=== PATIENT | female | born 1945 | race Caucasian/White ===

== ENCOUNTER 2017-01-22 21:13 | Emergency (ER) | payer MEDICARE, BC ==
[2015-09-01 12:26] VITALS: BMI 32.6
[~2017-01-22 21:13] MED LIST: ACETAZOLAMIDE250 MG PO; ALLEGRA180 MG PO; ANCEF/KEFZOL INJ1 GM IV; ASPIRIN EC81 M1 PO; BAYER CHEWABLE81 MG PO; BYSTOLIC10 MG PO; CALCIUM PO; CALCIUM/VIT D; COCONUT OIL; COLACE100 MG PO; COZAAR50 MG PO; DULCOLAX10 MG/SUPP RC; EFFIENT10 MG PO; ELIQUIS2.5 MG PO; FENOFIBRATE134 MG PO; HYDROCODON-ACE1 EAC7 PO; HYDROCODONE-APA1 TAB PO; LEVOTHROID112 MCG PO; MAG-OXIDE400 MG PO; MIRALAX17 GM PO; MOBIC7.5 MG PO; MS CONTIN15 MG PO; MULTI-DAY VITAM1 TAB PO; OYSCO 500+D TAB1 TAB; PHENERGAN25 M1 PO; PLAVIX75 MG PO; POTASSIUM99 M1; PRILOSEC20 MG PO; SENOKOT-S TABLE1 TAB PO; ZOLOFT50 MG PO; [UNRECOGNIZED DRUG - OTHER] PO
[2017-01-22 21:41] LABS: BASOPHILS 0.5 % (0-2); EOSINOPHILS 1.3 % (0-7); HEMATOCRIT 30.6 % (36.0-48.0); HEMOGLOBIN 9.9 g/dL (12-16); IMMATURE GRANULOCYTES 0.3 % (0-5); MCHC 32.4 g/dL (31.0-37.0); MCV 92.7 fL (80.0-100.0); MEAN PLATELET VOLUME 9.8 fL (7.4-10.4); MONOCYTES 5.9 % (2-11); PLATELET COUNT 359 10x3/uL (130-400); WBC 8.7 10x3/uL (4.8-10.8)
[2017-01-22 21:48] LABS: APTT 25.2 SECONDS (22.8-39.4); INR 1.01 (0.85-1.17); PROTIME 13.1 SECONDS (11.6-15.0)
[2017-01-22 21:53] LABS: ALBUMIN 3.8 g/dL (3.4-5.0); ANION GAP 10.3 mmol/L (8-16); BILIRUBIN - TOTAL 0.19 mg/dL (0.2-1.3); CALCIUM 8.9 mg/dL (8.5-10.1); CARBON DIOXIDE 26.6 mmol/L (21.0-32.0); CREATININE - SERUM 1.3 mg/dL (0.6-1.3); POTASSIUM - SERUM 3.9 mmol/L (3.5-5.1); PROTEIN - SERUM 6.9 g/dL (6.4-8.2)
== END 2017-01-23 00:35 | disposition home or self-care (01) ==
LOC: D.ER 21:13
PROVIDERS: Family Medicine
DX: K92.2 Gastrointestinal hemorrhage, unspecified (principal); I10 Essential (primary) hypertension

== ENCOUNTER → 2017-08-23 16:25 | Outpatient (CLI) | payer MEDICARE, BC ==
[2015-09-01 12:26] VITALS: BMI 32.6
[~2017-08-23 16:25] MED LIST changes: +BRILINTA90 MG PO; +NORVASC5 MG PO
[2017-08-23 16:33] LABS: BASOPHILS 0.8 % (0-2); HEMATOCRIT 38.7 % (36.0-48.0); HEMOGLOBIN 12.6 g/dL (12-16); IMMATURE GRANULOCYTES 0.2 % (0-5); LYMPHOCYTES 35.7 % (15-50); MCH 29.7 pg (26.0-34.0); MCHC 32.6 g/dL (31.0-37.0); MCV 91.3 fL (80.0-100.0); MEAN PLATELET VOLUME 10.2 fL (7.4-10.4); MONOCYTES 9.9 % (2-11); NEUTROPHILS 50.4 % (40-80); PLATELET COUNT 288 10x3/uL (130-400); RBC 4.24 10x6/uL (4.00-5.40); WBC 5.9 10x3/uL (4.8-10.8)
[2017-08-23 17:06] LABS: % SATURATION 20 % (15-55); IRON 69 ug/dl (35-150); TOTAL IRON BIND CAPACITY 344 ug/dl (260-445); UNSAT IRON BIND CAPACITY 275 ug/dl (150-375)
[2017-08-25 08:19] LABS: FOLATE (FOLIC ACID) - SERUM 17.8 ng/mL (>3.0)
== END | disposition home or self-care (01) ==
LOC: D.LABREF 16:25
PROVIDERS: Nurse Practitioner
DX: E61.1 Iron deficiency (principal)

== ENCOUNTER 2017-09-14 11:45 | Outpatient (CLI) | payer MEDICARE, BC ==
[~2017-09-14] VITALS: Ht 157.5 cm; Wt 86.4 kg
--- NOTE | ~2017-09-14 | HEMODYNAMI ---
PATIENT:TOMEKA VALLE MEDICAL RECORD: [id number] : 41 LOCATION:[facility] ADMISSION DATE: 09/14/17 Generatedon:09/14/201715:37 Patient name: TOMEKA VALLE Patient #: [id number] SSN: DO B: 1945 Date of study: 09/14/2017 Page: Of Hemodynamic Procedure Report Patient Data Patient Demographics Procedure consent was obtained First Name: TOMEKA Gender: Female Last Name: LEONARD : 1945 Middle Initial: ALLAN Age: 72 year(s) Patient #: [id number] Race: Additional ID: [id number] Contact details Address: [address] [place] [address] State: [place] City: [facility] Zip code: [address] Past Medical History History of disease Date Diagnosis Comments CAD Allergies Allergen Reaction Date Comments Reported Penicillins 08/20/2015 Other allergy 08/20/2015 PRENISONE Other allergy 09/14/2017 wasp/bee stings, prednisone Penicillins 09/14/2017 Admission Admission Data Admission Date: 09/14/2017 Admission Time: 11:45 Height (in.): 62 BSA: 1.87 (m2) Height (cm.): 157.48 BMI: 34.68 (kg/m2) Weight (lbs.): 189.6 Weight (kg.): 86 Lab Results Lab Result Date: 09/14/2017 Lab Result Time: 0:00 Biochemistry Name Units Result Min Max BUN mg/dl 19 --(----)*- 7 18 Creatinine mg/dl 0.9 --(-*--)-- 0.6 1.3 CBC Name Units Result Min Max Hemoglobin g/dl 12.8 -*(----)-- 13.5 17.5 Platelets 10^3/l 261 --(-*--)-- 130 400 Procedure Procedure Types Cath Procedure Diagnostic Procedure LHC LH w/Coronaries PCI Procedure Coronary Stent Coronary Stent Initial Procedure Description Procedure Date Procedure Date: 09/14/2017 Procedure Start Time: 15:02 Procedure End Time: 15:36 Procedure Staff Name Function Rosas Solis MD Performing Physician Meliton Greene RN Nurse Sole Tolentino RT Scrub Santiago Jimenez RT Monitor Procedure Data Cath Procedure Fluoroscopy Diagnostic fluoroscopy Total fluoroscopy Time: 4.6 time: 4.6 min min Diagnostic fluoroscopy Total fluoroscopy dose: 570 dose: 570 mGy mGy Contrast Material Contrast Material Type Amount (ml) Isovue 300 86 Entry Location Entry Primary Successful Side Size Upsize Upsize Entry Closure Succes sful Closure Location (Fr) 1 (Fr) 2 (Fr) Remarks Device Remarks Femoral Right 5 Fr 6 Fr Exoseal artery Short Estimated blood loss: 10 ml Diagnostic catheters Device Type Used For End Catheter Placement MULTIPACK JL 4.0 5Fr Procedure catheter MULTIPACK 3DRC 5Fr Procedure catheter MULTIPACK Pigtail 5 Fr Procedure catheter Procedure Complications No complications Procedure Medications Medication Administration Route Dosage Oxygen NC 2 l/min Lidocaine 2% added to field 20 Heparin Flush Bag added to field 2 bags (1000units/500ml NS) 0.9% NaCl I.V. 100 ml/hr Versed I.V. 2 mg Fentanyl I.V. 50 mcg Versed I.V. 1 mg Fentanyl I.V. 50 mcg Versed I.V. 1 mg Heparin Bolus I.V. 8500 units Versed I.V. 1 mg Fentanyl I.V. 50 mcg Zofran I.V. 4 mg Brilinta P.O. 180 mg Hemodynamics Rest BSA: 1.87 (m2) O2 Consumption: Estimated: 171.52 (ml/min) O2 Consumption indexed : Estimated:91.72 (ml/min/m) Heart Rate: 71 (bpm) Pressure Samples Time Site Value (mmHg) Purpose Heart Use Rate(bpm) 15:04 AO 133/53(83) Snapshot 68 15:10 LV 138/-7,13 Snapshot 73 Gradients Valve Time Site Site Mean SEP/DFP Peak To Heart Use 1 2 (mmHg) (sec/min) Peak Rate (mmHg) (bpm) Aortic 15:10 LV AO 69 Snapshots Pre Cath Intra NCS Post Cath Vital Signs Time Heart Resp SPO2 etCO2 NIBP (mmHg) Rhythm Pain Sedation Rate (ipm) (%) (mmHg) Status Level (bpm) 14:54:38 65 18 99 0 183/80(148) NSR 0 (11) 10(A) , No pain 14:59:21 67 16 99 20.1 133/69(103) NSR 0 (11) 10(A) , No pain 15:04:02 69 51 100 29.1 132/69(108) NSR 0 (11) 9(A) , No pain 15:08:42 73 15 99 22.4 141/69(100) NSR 0 (11) 9(A) , No pain 15:13:25 76 13 99 23.8 135/56(98) NSR 0 (11) 9(A) , No pain 15:18:01 81 15 100 33.6 127/68(98) NSR 0 (11) 9(A) , No pain 15:22:38 82 25 100 34.3 124/63(102) NSR 0 (11) 10(A) , No pain 15:27:19 73 14 100 10.4 123/61(88) NSR 0 (11) 10(A) , No pain 15:31:59 72 13 100 38.8 140/57(95) NSR 0 (11) 10(A) , No pain 15:36:42 68 11 100 31.3 134/71(85) NSR 0 (11) 10(A) , No pain Medications Time Medication Route Dose Verified Delivered Reason Notes Effectiveness by by 14:56:55 Oxygen NC 2 Rosas Buffie used for l/min Will Greene RN procedure 14:57:25 Lidocaine 2% added 20ml Rosas Rosas for local to vial Will Solis MD anesthetic field 14:57:30 Heparin Flush added 2 Rosas Rosas used for Bag to bags Will Solis MD procedure (1000units/500ml field NS) 14:57:38 0.9% NaCl I.V. 100 Rosas Buffie Per physician ml/hr Will Greene RN 14:58:31 Versed I.V. 2 mg Rosas Buffie for sedation Will Greene RN 14:58:36 Fentanyl I.V. 50 Rosas Buffie for sedation mcg Will Greene RN 15:02:58 Versed I.V. 1 mg Rosas Buffie for sedation Will Greene RN 15:03:02 Fentanyl I.V. 50 Rosas Buffie for sedation mcg Will Greene RN 15:05:47 Versed I.V. 1 mg Rosas Buffie for sedation Will Greene RN 15:15:34 Heparin Bolus I.V. 8,500 Rosas Buffie for verifi ed units Will Greene RN anticoagulation with dr solis 15:20:09 Versed I.V. 1 mg Rosas Buffie for sedation Will Greene RN 15:20:14 Fentanyl I.V. 50 Rosas Buffie for sedation mcg Will Greene RN 15:25:55 Zofran I.V. 4 mg Rosas Buffie Per physician Will Greene RN 15:26:34 Brilinta P.O. 180 Rosas Buffie for mg Will Greene RN antiplatelet therapy Procedure Log Time Note 14:21:03 Time tracking: Regular hours (M-F 7:00 - 5:00) 14:21:07 Plan of Care:Hemodynamics will remain stable., Cardiac rhythm will remain stable., Comfort level will be maintained., Respiratory function will remain adequate., Patient/ family verbilizes understanding of procedure., Procedure tolerated without complication., Recovers from procedure without complications.. 14:33:45 Ellie Counts RT(R) sent for patient. Start room use. 14:43:23 Patient received from Pre/Post Procedure Room to CCL 1 Alert and oriented. Tansferred to table in Supine position. 14:43:24 Warm blankets applied, and nicole hugger turned on for patient comfort. 14:43:24 Correct patient and procedure confirmed by team. 14:43:25 Signed procedure consent form obtained from patient. 14:43:26 ECG and BP/O2 sat monitors applied to patient. 14:43:27 Pre-procedure instructions explained to patient. 14:43:27 Pre-op teaching completed and patient verbalized understanding. 14:43:35 Family in waiting room. 14:43:36 Patient NPO since Midnight. 14:53:27 Patient allergic to Other allergywasp/bee stings, prednisone 14:53:34 Patient allergic to Penicillins 14:53:40 Vital chart was started 14:53:43 Rhythm: sinus rhythm 14:53:44 Full Disclosure recording started 14:54:46 H&P Date Dictated: 08/23/2017 Within 30 days and on chart., H&P Addendum completed by physician on day of procedure. (MUST COMPLETE FOR ALL OUTPATIENTS). 14:54:50 Is patient on blood thinner?No 14:54:59 Patient diabetic? No. 14:55:02 Previous problem with sedation/anesthesia? No ? 14:55:03 Snore? No 14:55:04 Sleep apnea? No 14:55:05 Deviated septum? No 14:55:06 Opens mouth fully? Yes 14:55:06 Sticks out tongue? Yes 14:55:08 Airway obstruction? No ? 14:55:12 Dentures? Yes IN 14:55:16 Pre procedure: right dorsailis pedis pulse 2+ Normal; easily identifiable; not easily obliterated 14:55:21 Patient pain scale 0/10 ?. 14:55:26 IV patent on arrival in left hand with 0.9% NaCl at [facility]. 14:55:28 Lab results completed and on chart. 14:55:32 Right groin area was prepped with chlora-prep and draped in sterile fashion 14:55:33 Alarms reviewed by R. N. 14:55:34 Sharps counted by scrub and verified by R.N. 14:55:38 Use device set Femoral Dx 14:55:38 ACIST Syringe (73647) opened to sterile field. 14:55:39 Bag Decanter (2002) opened to sterile field. 14:55:39 Medline Cath Pack ([id number]) opened to sterile field. 14:55:40 DIAGNOSTIC WIRE .035 260cm J wire (476142) opened to sterile field. 14:55:41 ACIST Hand Control (45520) opened to sterile field. 14:55:41 ACIST Manifold (95357) opened to sterile field. 14:55:42 DIAGNOSTIC Multipack 5Fr catheter set ([id number]) opened to sterile field. 14:55:43 Tegaderm 4 x 4 (1626W) opened to sterile field. 14:55:43 PERCUTANEOUS ENTRY 19GA needle opened to sterile field. 14:55:44 SHEATH Prelude 5Fr 0.035 (PFH-9K-09-035) opened to sterile field. 14:55:53 Final Timeout: patient, procedure, and site verified with staff and physician. All members of the team are in agreement. 14:55:56 Right groin site verified by team. 14:55:58 Physical assessment completed. ASA score P 2 - A patient with mild systemic disease as per Rosas Solis MD. 14:56:01 Sedation plan: IV Moderate Sedation Medication:Versed, Fentanyl 14:56:55 Oxygen 2 l/min NC was administered by Meliton Greene RN; used for procedure; 14:57:25 Lidocaine 2% 20ml vial added to field was administered by Rosas Solis MD; for local anesthetic; 14:57:30 Heparin Flush Bag (1000units/500ml NS) 2 bags added to field was administered by Rosas Solis MD; used for procedure; 14:57:38 0.9% NaCl 100 ml/hr I.V. was administered by Meliton Greene RN; Per physician; 14:58:31 Versed 2 mg I.V. was administered by Meliton Greene RN; for sedation; 14:58:36 Fentanyl 50 mcg I.V. was administered by Meliton Greene RN; for sedation; 15:00:40 Patient Weight : 189.6 lbs 15:00:43 Patient Height : 62 inches 15:02:19 Lab Result : Hemoglobin 12.8 g/dl 15:02:19 Lab Result : Platelets 261 10^3/l 15:02:19 Lab Result : BUN 19 mg/dl 15:02:19 Lab Result : Creatinine 0.9 mg/dl 15:02:24 Procedure started. 15:02:30 Local anesthetic to right femoral artery with Lidocaine 2% by Rosas Solis MD.INITIAL ACCESS ONLY 15:02:58 Versed 1 mg I.V. was administered by Meliton Greene RN; for sedation; 15:03:02 Fentanyl 50 mcg I.V. was administered by Meliton Greene RN; for sedation; 15:03:06 Zero performed for pressure channel P1 15:03:47 A 5 Fr sheath was inserted into the Right Femoral artery 15:03:55 Baseline sample Acquired. 15:04:04 A MULTIPACK JL 4.0 5Fr catheter was advanced over the wire and used for Procedure. 15:05:36 LCA angiography performed. 15:05:47 Versed 1 mg I.V. was administered by Meliton Greene RN; for sedation; 15:06:48 Catheter exchanged over wire. 15:06:53 A MULTIPACK 3DRC 5Fr catheter was advanced over the wire and used for Procedure. 15:08:36 RCA angiography performed. 15:08:40 Catheter exchanged over wire. 15:08:53 A MULTIPACK Pigtail 5 Fr catheter was advanced over the wire and used for Procedure. 15:10:27 LV angiography performed. 15:10:28 LV gram done using DOMINGUEZ 15:10:36 EF : 60 % 15:10:47 LV hemodynamics recorded. 15:10:50 Injector settings: Ml/sec: 10, Volume: 20, 15:10:53 Catheter exchanged over wire. 15:11:07 Use device set SOLIS PCI 15:11:22 SHEATH Prelude 6Fr 0.035 (GNA-8I-57-035) opened to sterile field. 15:12:45 GUIDE 6FR 3DRC catheter ([id number]) opened to sterile field. 15:12:51 BMW 300cm [place] 2 J wire ([id number]) opened to sterile field. 15:12:52 INFLATOR Merit BasixCompak (IE7163) opened to sterile field. 15:12:54 TUBING High Pressure Extension Tubing (Will) ([id number]) opened to sterile field. 15:14:19 Sheath upsized to a 6 Fr Short. 15:14:28 6 Fr 3DRC guide catheter was inserted over the wire 15:15:32 BMW wire advanced. 15:15:34 Heparin Bolus 8,500 units I.V. was administered by Meliton Greene RN; for anticoagulation; verified with dr solis 15:16:26 Wire advanced across lesion. 15:19:35 Place stent Inflation Number: 1 A INTEGRITY OTW 3.0 X 18 stent ([id number]) was prepped and advanced across the Prox RCA. The stent was deployed at 14 YOUNG for 0:10 (min:sec). 15:20:09 Versed 1 mg I.V. was administered by Meliton Greene RN; for sedation; 15:20:14 Fentanyl 50 mcg I.V. was administered by Meliton Greene RN; for sedation; 15:24:08 Stent catheter was removed intact over wire. 15:24:09 Wire removed. 15:24:09 Guide catheter removed. 15:24:14 EXOSEAL 6Fr (EX600) opened to sterile field. 15:24:27 Sheath removed intact; hemostasis achieved with Exoseal to the Right Femoral artery. 15:24:29 Procedure ended.(Physican Out) 15:25:55 Zofran 4 mg I.V. was administered by Meliton Greene RN; Per physician; 15:26:34 Brilinta 180 mg P.O. was administered by Meliton Greene RN; for antiplatelet therapy; 15:30:42 Fluoroscopy time 04.60 minutes. 15:30:46 Fluoroscopy dose: 570 mGy 15:30:46 Flurop Dose total: 570 15:30:51 Contrast amount:Isovue 300 86ml. 15:34:29 Sharps counted by scrub and verified by R.N. 15:34:48 Post right femoral artery:stable, oozing 15:34:53 Femstop placed over the right femoral artery at 170 mmHg. Hemostasis achieved. 15:34:57 Post-procedure physical assessment completed. ASA score P 2 - A patient with mild systemic disease as per Rosas Solis MD. 15:35:00 Post procedure rhythm: unchanged. 15:35:02 Estimated blood loss: 10 ml 15:35:04 Post procedure instruction explained to patient.Patient verbalizes understanding. 15:35:05 Patient needs reinforcement of post procedure teaching. 15:35:12 Procedure type changed to Cath procedure, Diagnostic procedure, LHC, LHC w/Coronaries, PCI procedure, Coronary Stent, Coronary Stent Initial 15:35:14 Procedure and supply charges have been captured, reviewed, submitted and are correct. 15:35:16 Procedure Complication : No complications 15:35:32 FEMSTOP Gold ([id number]) opened to sterile field. 15:36:08 Vital chart was stopped 15:36:08 See physician's report for complete and final results. 15:36:10 Report given to Pre/Post Procedure Room. 15:36:13 Patient transfered to Pre/Post Procedure Room with Stretcher. 15:36:15 Procedure ended. 15:36:15 Full Disclosure recording stopped 15:36:18 End room use (Document Last) Intervention Summary Intervention Notes Time ActionType Lesion and Equipment Action# Pressure Duration Attributes Used 15:19:35 Place stent Prox RCA INTEGRITY 1 14 00:10 OTW 3.0 X 18 stent ([id number]) Device Usage Item Name Manufacture Quantity Catalog Number Hospital Part Current Minimal Lot# / Charge Number Stock Stock Serial# Code ACIST Syringe Acist 1 01560 648876 947945 780292 20 (61464) [employer] Bag Decanter Microtek 1 2001S 528828 58763 384736 5 (2001S) Medical Inc. Medline Cath Cardinal 1 [id number] 328005 28178 504687 5 Pack Health ([id number]) DIAGNOSTIC WIRE [facility] 1 897744 851883 462410 927311 30 .035 260cm J wire (176954) ACIST Hand Acist 1 70851 170607 425705 296353 5 Control (96867) [employer] Inc ACIST Manifold Acist 1 14686 600160 395398 823217 5 (48213) [employer] Inc DIAGNOSTIC Cardinal 1 IJ2168 529343 06292 909535 30 Multipack 5Fr Health catheter set ([id number]) Tegaderm 4 x 4 3M 1 1626W 543769 841990 497205 5 (1626W) PERCUTANEOUS Cook Medical 1 U15675 597330 496079 5 ENTRY 19GA needle SHEATH Prelude Merit 1 XBE-3T-22-035 000832 375971 242399 5 5Fr 0.035 Medical (QTV-9K-61-035) MULTIPACK JL Cardinal 1 [id number] 5 4.0 5Fr Health catheter MULTIPACK 3DRC Cardinal 1 658181 5 5Fr catheter Health MULTIPACK Cardinal 1 118918 5 Pigtail 5 Fr Health catheter SHEATH Prelude Merit 1 VVY-6J-02-35 828165 1651426 758621 5 6Fr 0.035 Medical (NDW-5N-95-035) GUIDE 6FR 3DRC Medtronic 1 [id number] 882716 426392 187316 1 catheter ([id number]) BMW 300cm Tariq 1 [id number] 171721 117209 365021 5 [place] 2 J Vascular wire ([id number]) INFLATOR Merit Merit 1 WZ7003 275220 400157 448499 15 BasPwinty Medical ([id number]) TUBING High Merit 1 [id number] 743296 47911 490827 10 Pressure Medical Extension Tubing ([employer]) (YZ1066E) INTEGRITY OTW Medtronic 1 [id number] 561859 381566 0 [id number] 3.0 X 18 stent ([id number]) EXOSEAL 6Fr Cardinal 1 EX600 632198 911441 391172 10 (EX600) Health FEMSTOP Gold [facility] Evaristo 1 J67990 698848 675491 599804 5 ([id number]) Signature Audit [place] Stage Time Signature Unsigned Intra-Procedure 09/14/2017 Santiago Jimenez 3:37:38 PM RT(R) Signatures Monitor : Santiago Jimenez RT Signature : Date : Time : [address] [address]
[~2017-09-14 11:45] MED LIST changes: -BRILINTA90 MG PO; -NORVASC5 MG PO
[2017-09-14] MEDS ORDERED: NORVASC5 MG PO (12:27)
[2017-09-14 12:40] VITALS: BP 195/81; Ht 157.5 cm; Wt 86.4 kg
[2017-09-14 12:51] LABS: BASOPHILS 0.8 % (0-2); EOSINOPHILS 3.2 % (0-7); HEMATOCRIT 38.3 % (36.0-48.0); HEMOGLOBIN 12.8 g/dL (12-16); IMMATURE GRANULOCYTES 0.5 % (0-5); LYMPHOCYTES 34.7 % (15-50); MCH 29.7 pg (26.0-34.0); MCHC 33.4 g/dL (31.0-37.0); MCV 88.9 fL (80.0-100.0); MEAN PLATELET VOLUME 9.4 fL (7.4-10.4); MONOCYTES 8.4 % (2-11); NEUTROPHILS 52.4 % (40-80); PLATELET COUNT 261 10x3/uL (130-400); RBC 4.31 10x6/uL (4.00-5.40); RDW 12.9 % (11.5-14.5); WBC 6.5 10x3/uL (4.8-10.8)
[2017-09-14 13:56] LABS: ANION GAP 14.3 mmol/L (8-16); CALCIUM 9.7 mg/dL (8.5-10.1); CARBON DIOXIDE 25.8 mmol/L (21.0-32.0); CREATININE - SERUM 0.9 mg/dL (0.6-1.3); POTASSIUM - SERUM 4.1 mmol/L (3.5-5.1)
[2017-09-14] MEDS ORDERED: BRILINTA90 MG PO (15:35)
== END 2017-09-14 20:00 | disposition home or self-care (01) ==
LOC: D.CATH 11:45
PROVIDERS: Internal Medicine Cardiovascular Disease
DX: I25.119 Atherosclerotic heart disease of native coronary artery with unspecified angina pectoris (principal); Z95.5 Presence of coronary angioplasty implant and graft; Z01.812 Encounter for preprocedural laboratory examination

== ENCOUNTER → 2018-03-27 17:05 | Outpatient (CLI) | payer MEDICARE, BC ==
[2017-09-14 12:40] VITALS: BMI 34.8
[~2018-03-27 17:05] MED LIST changes: +BRILINTA90 MG PO; +NORVASC5 MG PO
== END | disposition home or self-care (01) ==
LOC: D.LABREF 17:05
DX: M25.561 Pain in right knee (principal)

== ENCOUNTER → 2018-03-28 13:16 | Outpatient (CLI) | payer MEDICARE, BC ==
[2017-09-14 12:40] VITALS: BMI 34.8
[2018-03-28 13:42] LABS: BASOPHILS 0.9 % (0-2); EOSINOPHILS 2.1 % (0-7); HEMATOCRIT 40.6 % (36.0-48.0); HEMOGLOBIN 12.9 g/dL (12-16); IMMATURE GRANULOCYTES 0.1 % (0-5); LYMPHOCYTES 29.4 % (15-50); MCH 30.4 pg (26.0-34.0); MCHC 31.8 g/dL (31.0-37.0); MCV 95.8 fL (80.0-100.0); MEAN PLATELET VOLUME 10.6 fL (7.4-10.4); MONOCYTES 8.7 % (2-11); NEUTROPHILS 58.8 % (40-80); RBC 4.24 10x6/uL (4.00-5.40); RDW 13.7 % (11.5-14.5); WBC 8.2 10x3/uL (4.8-10.8)
[2018-03-28 13:52] LABS: PLATELET COUNT 339 10x3/uL (130-400)
[2018-03-28 14:57] LABS: ERYTHROCYTE SEDIMENTATION RATE 13 mm/hr (0-30)
== END | disposition home or self-care (01) ==
LOC: D.LABREF 13:16
PROVIDERS: Orthopaedic Surgery
DX: M25.561 Pain in right knee (principal)

== ENCOUNTER → 2018-03-31 10:05 | Outpatient (CLI) | payer MEDICARE, BC ==
[2017-09-14 12:40] VITALS: BMI 34.8
== END | disposition home or self-care (01) ==
LOC: D.NM 10:05
DX: M25.561 Pain in right knee (principal)

== ENCOUNTER → 2018-04-05 10:44 | Outpatient (CLI) | payer MEDICARE, BC ==
[2017-09-14 12:40] VITALS: BMI 34.8
[2018-04-05 13:30] LABS: EOS BF 3 %; MACROPHAGES BF 18 %; NEUT - BF 46 %
[2018-04-07 13:18] LABS: FUNGUS STAIN Final report (())
== END | disposition home or self-care (01) ==
LOC: D.LABREF 10:44
PROVIDERS: Orthopaedic Surgery
DX: M25.561 Pain in right knee (principal)

== ENCOUNTER → 2018-04-13 10:18 | Outpatient (CLI) | payer MEDICARE, BC ==
[2017-09-14 12:40] VITALS: BMI 34.8
== END | disposition home or self-care (01) ==
LOC: D.HCCARDIO 10:18
DX: I25.10 Atherosclerotic heart disease of native coronary artery without angina pectoris (principal)

== ENCOUNTER 2018-05-03 11:14 | Outpatient (CLI) | payer MEDICARE, BC ==
[~2018-05-03] VITALS: Ht 157.5 cm; Wt 81.8 kg
--- NOTE | ~2018-05-03 | HEMODYNAMI ---
PATIENT:TOMEKA VALLE MEDICAL RECORD: [id number] : 41 LOCATION:[facility] ADMISSION DATE: 05/03/18 Generatedon:05/03/201815:06 Patient name: TOMEKA VALLE Patient #: [id number] SSN: DO B: 1945 Date of study: 05/03/2018 Page: Of Hemodynamic Procedure Report Patient Data Patient Demographics Procedure consent was obtained First Name: TOMEKA Gender: Female Last Name: LEONARD : 1945 Middle Initial: ALLAN Age: 73 year(s) Patient #: [id number] Race: Additional ID: [id number] Contact details [address]: [address] [place] [address] State: [place] City: [place] Zip code: [address] Past Medical History History of disease Date Diagnosis Comments CAD Allergies Allergen Reaction Date Comments Reported Penicillins 08/20/2015 Other allergy 08/20/2015 PRENISONE Other allergy 09/14/2017 wasp/bee stings, prednisone Penicillins 09/14/2017 Penicillins 05/03/2018 Other allergy 05/03/2018 prednisone Admission Admission Data Admission Date: 05/03/2018 Admission Time: 11:14 Height (in.): 62 BSA: 1.88 (m2) Height (cm.): 157.48 BMI: 35.12 (kg/m2) Weight (lbs.): 192 Weight (kg.): 87.09 Procedure Procedure Types Cath Procedure Diagnostic Procedure LHC LHC w/Coronaries Procedure Description Procedure Date Procedure Date: 05/03/2018 Procedure Start Time: 14:53 Procedure End Time: 15:06 Procedure Staff Name Function Rosas Solis MD Performing Physician Ellie Bauman RT Monitor Florentino Kate RN Nurse Norah Fox RT Scrub Procedure Data Cath Procedure Fluoroscopy Diagnostic fluoroscopy Total fluoroscopy Time: 1.5 time: 1.5 min min Diagnostic fluoroscopy Total fluoroscopy dose: 445 dose: 445 mGy mGy Contrast Material Contrast Material Type Amount (ml) Isovue 300 52 Entry Location Entry Primary Successful Side Size Upsize Upsize Entry Closure Succes sful Closure Location (Fr) 1 (Fr) 2 (Fr) Remarks Device Remarks Femoral Right 5 Fr Exoseal artery Estimated blood loss: 5 ml Diagnostic catheters Device Type Used For End Catheter Placement MULTIPACK JL 4.0 5Fr Left Coronary catheter Angiography MULTIPACK 3DRC 5Fr Right Coronary catheter Angiography MULTIPACK Pigtail 5 Fr LV Angiography catheter Procedure Complications No complications Procedure Medications Medication Administration Route Dosage 0.9% NaCl I.V. 100 ml/hr Oxygen etCO2 Nasal cannula 2 l/min Heparin Flush Bag added to field 2 bags (1000units/500ml NS) Lidocaine 2% added to field 20 Benadryl I.V. 50 mg Versed I.V. 1 mg Fentanyl I.V. 50 mcg Versed I.V. 1 mg Fentanyl I.V. 50 mcg Hemodynamics Rest BSA: 1.88 (m2) O2 Consumption: Estimated: 170.95 (ml/min) O2 Consumption indexed : Estimated:90.93 (ml/min/m) Heart Rate: 70 (bpm) Pressure Samples Time Site Value (mmHg) Purpose Heart Use Rate(bpm) 14:59 LV 137/-5,13 EDP 76 Gradients Valve Time Site Site Mean SEP/DFP Peak To Heart Use 1 2 (mmHg) (sec/min) Peak Rate (mmHg) (bpm) Aortic 15:01 LV AO 81 Snapshots Pre Cath Intra NCS Post Cath Vital Signs Time Heart Resp SPO2 etCO2 NIBP (mmHg) Rhythm Pain Sedation Rate (ipm) (%) (mmHg) Status Level (bpm) 14:44:16 62 13 94 131/56(100) NSR 0 (11) 10(A) , No pain 14:48:34 65 19 97 39.9 129/59(96) NSR 0 (11) 10(A) , No pain 14:52:50 67 13 96 24.8 124/61(93) NSR 0 (11) 10(A) , No pain 14:57:06 77 13 97 42.9 120/59(100) NSR 0 (11) 9(A) , No pain 15:01:18 81 14 98 39.2 131/64(100) NSR 0 (11) 10(A) , No pain 15:05:34 71 18 97 26.3 134/59(97) NSR 0 (11) 10(A) , No pain Medications Time Medication Route Dose Verified Delivered Reason Notes Effe ctiveness by by 14:45:25 0.9% NaCl I.V. 100 Florentino Florentino Per ml/hr Humble Kate physician RN RN 14:45:35 Oxygen etCO2 2 Florentino Florentino Per Nasal l/min Humble Kate physician cannula RN RN 14:45:45 Heparin Flush added 2 Florentino Florentino used for Bag to bags Lorigan Humble procedure (1000units/500ml field RN RN NS) 14:45:54 Lidocaine 2% added 20ml Florentino Florentino to to vial Lorigan Lorigan sharp's field RN RN 14:46:04 Benadryl I.V. 50 mg Florentino Florentino Per Humble Kate physician RN RN 14:47:25 Versed I.V. 1 mg Florentino Florentino for Lorigan Lorigan sedation RN RN 14:47:34 Fentanyl I.V. 50 Florentino Florentino for mcg Lorigan Lorigan sedation RN RN 14:53:56 Versed I.V. 1 mg Florentino Florentino for Lorigan Lorigan sedation RN RN 14:54:03 Fentanyl I.V. 50 Florentino Florentino for mcg Lorigan Lorigan sedation RN white metal caster Log Time Note 14:16:14 Patient Height : 62 inches 14:16:20 Patient Weight : 192 lbs 14:24:52 Florentino Kate RN sent for patient. Start room use. 14:29:08 Time tracking: Regular hours (M-F 7:00 - 5:00) 14:29:13 Plan of Care:Hemodynamics will remain stable., Cardiac rhythm will remain stable., Comfort level will be maintained., Respiratory function will remain adequate., Patient/ family verbilizes understanding of procedure., Procedure tolerated without complication., Recovers from procedure without complications.. 14:32:39 Patient received from Pre/Post Procedure Room to CCL 2 Alert and oriented. Tansferred to table in Supine position. 14:32:40 Warm blankets applied, and nicole hugger turned on for patient comfort. 14:32:40 Correct patient and procedure confirmed by team. 14:32:42 Signed procedure consent form obtained from patient. 14:32:43 ECG and BP/O2 sat monitors applied to patient. 14:32:44 Full Disclosure recording started 14:43:01 Vital chart was started 14:43:08 Rhythm: sinus rhythm 14:44:04 H&P Date Dictated: 04/17/2019 Within 30 days and on chart., H&P Addendum completed by physician on day of procedure. (MUST COMPLETE FOR ALL OUTPATIENTS). 14:44:05 Pre-procedure instructions explained to patient. 14:44:05 Pre-op teaching completed and patient verbalized understanding. 14:44:06 Family in patients room. 14:44:09 Patient NPO since Midnight. 14:44:42 Patient allergic to Penicillins 14:44:57 Patient allergic to Other allergyprednisone 14:44:59 Is the patient allergic to Iodine/contrast media? No. 14:45:00 Is patient on blood thinner?No 14:45:03 Patient diabetic? Yes. 14:45:04 If diabetic: On Metformin? Yes 14:45:11 If on Metformin: Last Dose? 04/29/2018 14:45:25 0.9% NaCl 100 ml/hr I.V. was administered by Florentino Kate RN; Per physician; 14:45:27 Previous problem with sedation/anesthesia? No ? 14:45:27 Snore? Yes 14:45:28 Sleep apnea? No 14:45:29 Deviated septum? No 14:45:31 Opens mouth fully? Yes 14:45:31 Sticks out tongue? Yes 14:45:35 Oxygen 2 l/min etCO2 Nasal cannula was administered by Florentino Kate RN; Per physician; 14:45:45 Heparin Flush Bag (1000units/500ml NS) 2 bags added to field was administered by Florentino Kate RN; used for procedure; 14:45:45 Airway obstruction? No ? 14:45:54 Lidocaine 2% 20ml vial added to field was administered by Florentino Kate RN; to sharp's; 14:46:02 Dentures? Yes IN 14:46:04 Benadryl 50 mg I.V. was administered by Florentino Kate RN; Per physician; 14:46:06 Pre procedure: right dorsailis pedis pulse 2+ Normal; easily identifiable; not easily obliterated 14:46:09 Patient pain scale 0/10 ?. 14:46:25 IV patent on arrival in left forearm with 0.9% NaCl at KVO. 14:46:27 Lab results completed and on chart. 14:46:33 Right groin area was prepped with chlora-prep and draped in sterile fashion 14:46:34 Alarms reviewed by R. N. 14:46:34 Sharps counted by scrub and verified by R.N. 14:46:36 Final Timeout: patient, procedure, and site verified with staff and physician. All members of the team are in agreement. 14:46:38 Right groin site verified by team. 14:46:41 Physical assessment completed. ASA score P 2 - A patient with mild systemic disease as per Rosas Solis MD. 14:46:44 Sedation plan: IV Moderate Sedation Medication:Versed, Fentanyl 14:46:51 Use device set Femoral Dx 14:46:52 ACIST Syringe (26025) opened to sterile field. 14:46:52 Bag Decanter (2002S) opened to sterile field. 14:46:53 Medline Cath Pack ([id number]) opened to sterile field. 14:46:54 DIAGNOSTIC WIRE .035 260cm J wire (069714) opened to sterile field. 14:46:54 ACIST Hand Control (22287) opened to sterile field. 14:46:55 ACIST Manifold (34531) opened to sterile field. 14:46:55 DIAGNOSTIC Multipack 5Fr catheter set ([id number]) opened to sterile field. 14:46:56 Tegaderm 4 x 4 (1626W) opened to sterile field. 14:46:57 SHEATH 5FR [place] (IZL340) opened to sterile field. 14:47:25 Versed 1 mg I.V. was administered by Florentino Kate RN; for sedation; 14:47:31 Baseline sample Acquired. 14:47:34 Fentanyl 50 mcg I.V. was administered by Florentino Kate RN; for sedation; 14:53:02 Procedure started. 14:53:05 Local anesthetic to right femoral artery with Lidocaine 2% by Rosas Solis MD.INITIAL ACCESS ONLY 14:53:08 Zero performed for pressure channel P1 14:53:39 A 5 Fr sheath was inserted into the Right Femoral artery 14:53:56 Versed 1 mg I.V. was administered by Florentino Kate RN; for sedation; 14:54:03 Fentanyl 50 mcg I.V. was administered by Florentino Kate RN; for sedation; 14:55:13 A MULTIPACK JL 4.0 5Fr catheter was advanced over the wire and used for Left Coronary Angiography. 14:56:20 Catheter removed. 14:56:46 A MULTIPACK 3DRC 5Fr catheter was advanced over the wire and used for Right Coronary Angiography. 14:58:01 Catheter removed. 14:58:26 A MULTIPACK Pigtail 5 Fr catheter was advanced over the wire and used for LV Angiography. 15:00:15 LV gram done using DOMINGUEZ 15:00:16 LV hemodynamics recorded. 15:00:18 Injector settings: Ml/sec: 10, Volume: 20, 15:00:23 EF : 60 % 15:01:20 Catheter removed. 15:01:45 EXOSEAL 5Fr (EX500) opened to sterile field. 15:01:51 Sheath removed intact; hemostasis achieved with Exoseal to the Right Femoral artery. 15:01:53 Procedure ended.(Physican Out) 15:02:33 Fluoroscopy time 01.50 minutes. 15:02:54 Flurop Dose total: 445 15:02:54 Fluoroscopy dose: 445 mGy 15:03:22 Contrast amount:Isovue 300 52ml. 15:03:24 Sharps counted by scrub and verified by R.N. 15:03:26 Insertion/operative site no bleeding no hematoma. 15:03:29 Post-op/insertion site Right Femoral artery dressed using a 4 x 4 and Tegaderm. 15:03:33 Post right femoral artery:stable, clean and dry 15:03:35 Post Procedure Pulses reassessed and unchanged 15:03:39 Post-procedure physical assessment completed. ASA score P 2 - A patient with mild systemic disease as per Rosas Solis MD. 15:03:43 Post procedure rhythm: unchanged. 15:03:48 Estimated blood loss: 5 ml 15:03:49 Post procedure instruction explained to patient.Patient verbalizes understanding. 15:03:50 Patient needs reinforcement of post procedure teaching. 15:04:13 Procedure Complication : No complications 15:04:15 See physician's report for complete and final results. 15:04:31 Procedure and supply charges have been captured, reviewed, submitted and are correct. 15:05:49 Vital chart was stopped 15:05:51 Report given to Pre/Post Procedure Room. 15:05:54 Patient transfered to Pre/Post Procedure Room with Stretcher. 15:06:03 Procedure ended. 15:06:03 Full Disclosure recording stopped 15:06:07 End room use (Document Last) Device Usage Item Name Manufacture Quantity Catalog Hospital Part Current Minimal L ot# / Number Charge Number Stock Stock Serial# Code ACIST Acist 1 37954 507515 319258 582346 20 Syringe Medical (59685) Systems Inc Bag Microtek 1 2001S 402233 71602 663923 5 Decanter Medical Inc. () Medline Medline 1 [id number] 962400 97097 038307 5 Cath Pack ([id number]) DIAGNOSTIC St Evaristo 1 512742 460367 290943 740367 30 WIRE .035 260cm J wire (750907) ACIST Hand Acist 1 49801 265888 774311 763321 5 Control Medical (75102) Systems Inc ACIST Acist 1 59142 524791 750999 119585 5 Manifold Medical (25447) Systems Inc DIAGNOSTIC Cardinal 1 DE5073 087998 19288 477458 30 Multipack Health 5Fr catheter set (GM5499) Tegaderm 4 3M 1 1626W 595168 005669 594451 5 x 4 (1626W) SHEATH 5FR Terumo 1 BBC901 425239 722080 647840 5 [place] (OQA342) MULTIPACK Cardinal 1 374307 5 JL 4.0 5Fr Health catheter MULTIPACK Cardinal 1 184064 5 3DRC 5Fr Health catheter MULTIPACK Cardinal 1 902891 5 Pigtail 5 Health Fr catheter EXOSEAL 5Fr Cardinal 1 EX500 868414 355498 652730 10 (EX500) Health Signature Audit Reeder Stage Time Signature Unsigned Intra-Procedure 05/03/2018 Ellie 3:06:21 PM Counts RT(R) Signatures Monitor : Ellie Signature : Counts RT Date : Time : [place] [id number] [place] [address]
[2018-05-03] MEDS ORDERED: GLUCOPHAGE500 MG PO (11:34)
[2018-05-03] MEDS ORDERED: COZAAR100 MG PO (11:34)
[2018-05-03] MEDS ORDERED: HCTZ25 MG PO (11:35)
[2018-05-03] MEDS ORDERED: ZOLOFT50 MG PO (11:35)
[2018-05-03] MEDS ORDERED: K-TAB10 MEQ PO (11:36)
[2018-05-03] MEDS ORDERED: LEVOTHYROXINE125 MCG PO (11:36)
[2018-05-03] MEDS ORDERED: ZYRTEC10 MG PO (11:37)
[2018-05-03 11:43] VITALS: BP 130/61; Ht 157.5 cm; Wt 81.8 kg
[2018-05-03 12:08] LABS: ANION GAP 14.4 mmol/L (8-16); CARBON DIOXIDE 26.6 mmol/L (21.0-32.0); CREATININE - SERUM 0.8 mg/dL (0.6-1.3)
[2018-05-03 12:10] LABS: BASOPHILS 0.6 % (0-2); EOSINOPHILS 2.3 % (0-7); HEMATOCRIT 35.3 % (36.0-48.0); HEMOGLOBIN 11.4 g/dL (12-16); IMMATURE GRANULOCYTES 0.3 % (0-5); LYMPHOCYTES 28.9 % (15-50); MCHC 32.3 g/dL (31.0-37.0); MCV 92.9 fL (80.0-100.0); MONOCYTES 8.6 % (2-11); NEUTROPHILS 59.3 % (40-80); PLATELET COUNT 276 10x3/uL (130-400); RDW 13.2 % (11.5-14.5)
--- NOTE | 2018-05-03 15:35 | NUR ---
PT RESTING COMFORTABLY. GIVEN WATER TO DRINK. DENIES NAUSEA. RIGHT GROIN SOFT TO TOUCH. NO S/S OF HEMATOMA NOTED. RIGHT PPP.
--- NOTE | 2018-05-03 16:05 | NUR ---
PT RESTING COMFORTABLY AT THIS TIME. RIGHT GROIN DRESSING C/D/I. NO S/S OF HEMATOMA NOTED. VSS AT THIS TIME.
--- NOTE | 2018-05-03 16:30 | NUR ---
PT'S HEAD OF BED INC TO 30 DEGREES. RIGHT GROIN DRESSING C/D/I. NO S/S OF HEMATOMA NOTED. RIGHT PEDAL PULSE PALPABLE. SET UP WITH SANDWICH TRAY. VSS AT THIS TIME.
--- NOTE | 2018-05-03 17:00 | NUR ---
RIGHT FA PIV D/C'D WITH CATH TIP INTACT. PT TOLERATED WELL. RIGHT GROIN DRESSING C/D/I. NO S/S OF HEMATOMA NOTED. PT DRESSED SELF. AMBULATED TO RESTROOM AND VOIDED WITHOUT DIFFICULTY.
--- NOTE | 2018-05-03 17:25 | NUR ---
DISCUSSED DISCHARGE INSTRUCTIONS WITH PT AND PT'S FAMILY. THEY VOICED UNDERSTANDING.
--- NOTE | 2018-05-03 17:30 | NUR ---
PT TAKEN OUT BY WHEELCHAIR TO VEHICLE. NO S/S OF DISTRESS NOTED. RIGHT GROIN DRESSING C/D/I. NO S/S OF HEMATOMA. PT REPORTS SHE HAS ALL BELONGINGS AND PAPER[place]ORK IN HAND.
== END 2018-05-03 17:30 | disposition home or self-care (01) ==
LOC: D.CATH 11:14
PROVIDERS: Internal Medicine Cardiovascular Disease
DX: I25.10 Atherosclerotic heart disease of native coronary artery without angina pectoris (principal); R94.30 Abnormal result of cardiovascular function study, unspecified

== ENCOUNTER → 2018-05-25 16:53 | Outpatient (CLI) | payer MEDICARE, BC ==
[2018-05-03 11:43] VITALS: BMI 33.0
[~2018-05-25 16:53] MED LIST changes: +ACETAMINOPHEN500 M1 PO; +COZAAR100 MG PO; +GLUCOPHAGE500 MG PO; +HCTZ25 MG PO; +K-TAB10 MEQ PO; +LEVOTHYROXINE125 MCG PO; +ULTRAM50 MG PO; +ZYRTEC10 MG PO
== END | disposition home or self-care (01) ==
LOC: D.LABREF 16:53
DX: M17.11 Unilateral primary osteoarthritis, right knee (principal); Z11.8 Encounter for screening for other infectious and parasitic diseases

== ENCOUNTER 2018-05-29 08:55 | Inpatient (IN) | payer MEDICARE, BC ==
[~2018-05-29] VITALS: Ht 157.5 cm; Wt 81.8 kg
[~2018-05-29 08:55] MED LIST changes: -ACETAMINOPHEN500 M1 PO; -ULTRAM50 MG PO
[2018-05-30] MEDS ORDERED: ULTRAM50 MG PO (14:32)
[2018-05-30] MEDS ORDERED: ACETAMINOPHEN500 M1 PO (14:32)
[2018-05-31 12:56] LABS: ANION GAP 14.6 mmol/L (8-16); APTT 31.4 SECONDS (22.8-39.4); CALCIUM 9.2 mg/dL (8.5-10.1); CARBON DIOXIDE 28.3 mmol/L (21.0-32.0); INR 0.98 (0.85-1.17); POTASSIUM - SERUM 3.9 mmol/L (3.5-5.1); PROTIME 12.5 SECONDS (11.6-15.0)
[2018-05-31 13:08] LABS: BASOPHILS 0.7 % (0-2); EOSINOPHILS 2.9 % (0-7); HEMATOCRIT 37.3 % (36.0-48.0); HEMOGLOBIN 11.9 g/dL (12-16); IMMATURE GRANULOCYTES 0.1 % (0-5); LYMPHOCYTES 33.2 % (15-50); MCH 29.3 pg (26.0-34.0); MCHC 31.9 g/dL (31.0-37.0); MCV 91.9 fL (80.0-100.0); MONOCYTES 8.7 % (2-11); NEUTROPHILS 54.4 % (40-80); PLATELET COUNT 287 10x3/uL (130-400); RBC 4.06 10x6/uL (4.00-5.40); RDW 13.2 % (11.5-14.5); WBC 6.8 10x3/uL (4.8-10.8)
[2018-05-31 14:00] LABS: APPEARANCE SL CLDY (CLEAR); BACTERIA MANY /hpf (NONE SEEN); BILIRUBIN NEGATIVE (NEGATIVE); COLOR YELLOW (YELLOW); EPITHELIAL CELLS OCC /hpf (0-5); GLUCOSE NEGATIVE (NEGATIVE); KETONE NEGATIVE (NEGATIVE); MUCUS <1+ /lpf (NONE SEEN); NITRITE POSITIVE (NEGATIVE); PROTEIN NEGATIVE (NEGATIVE); UROBILINOGEN NORMAL (NORMAL)
[2018-06-06] VITALS (14 sets, daily range): BP systolic 116–141; BP diastolic 46–64; Ht 157.5 cm; Wt 81.8 kg
--- NOTE | 2018-06-06 15:58 | OP ---
PATIENT NAME: TOMEKA PACHECO MEDICAL RECORD: [id number] :41 LOCATION:D.MS Quinn2208 ADMISSION DATE:06/06/18 SURGEON: LANE PHILLIPS DO DATE OF OPERATION: 06/06/2018 PROCEDURE PERFORMED: Right revision total knee arthroplasty. PREOPERATIVE DIAGNOSIS: Loosening of right total knee done about 3-4 years ago. POSTOPERATIVE DIAGNOSIS: Loosening of right total knee done about 3-4 years ago. INDICATIONS: Ms. Pacheco is a 73-year-old female who had her right knee done, I think, 3 or 4 years ago, maybe 2014. She has had pain in it for the last few years and instability with clicking a lot on it. She is tired of dealing with this pain. She has tried several rounds of outpatient physical therapy. Labs were drawn of ESR, CRP, and white count, which were all normal. An aspirate was done of her knee and did not grow any bacteria. It did have 2600 white cells; however, 46% of them were neutrophils. Again, the culture did not grow any bacteria. She did have a bone scan which showed either loosening versus infection. Due to the negative aspirate with loosening and instability, she said when she gets up and walk, she felt like it had to settle; and once it is settled, then it would not be as painful, which are typical signs for loosening. I informed her of risks and benefits of the procedure including infection. She is at higher risk due to it being a revision and a longer surgery and she is diabetic; bleeding, damage to nerve and vessels, need for further surgery, loosening again, and fracture. She was okay with those risks as she is tired of dealing with the pain. Blood clots also and even . She signed the consent. SURGEON: Lane Phillips DO DESCRIPTION OF PROCEDURE: The patient received a block by anesthesia in the preoperative area. I was assisted by Jac Rowland, Advanced Nurse Practitioner. He assisted me with holding retractors and closing. Once the patient was sedated and LMA was placed, the right lower extremity was prepped and draped in sterile fashion. Time-out was performed and everyone was in agreement with correct side, site, patient, and procedure. The patient received 80 mg of gentamicin and 2 grams of Ancef preoperatively. The incision was then begun, marked out over the old incision. Ioban was covering the leg. Incision began with a #10 blade scalpel down to the capsule and a fresh #10 blade was used to do capsulotomy. The scar tissue was removed from the gutters and the poly was removed from the old implant. Once the poly was removed from the femur, a flexible osteotome was used to work around the femur. The lateral side was quite loose and it popped off very easily. The tibia was then worked on and the medial side of the femur was loose as well as the medial side of the tibia. These popped off nicely and the cement that was on them both was removed. I then reamed the femur and cut a distal cut to freshen it up. I then reamed the tibia and did a freshened up cut there as well, approximately 2 mm. The tourniquet was inflated to begin the procedure and the leg was exsanguinated with an Esmarch. Tourniquet was inflated to 350 mmHg and was up for 124 minutes. At the 124-minute caryn, it was left down. Once the tibia and femur had been cut, reaming began on the femur first and then trial was put in, but it kept kicking out. All releases were done and again it kept kicking out when we trialed the tibia to float it. We decided to cut the box out then for the OPERATIVE REPORT [id number] TOMEKA PACHECO posterior stabilized implant and this impacted with 5-mm distal augments. This held well and fit very well. The tibia was then floated in and I used a 2.5 augment and a 14 tray and this seemed to do okay. The tibia was then prepped and drilled. The implants were put together and then cement was mixed. The tourniquet was let down just prior to this at the 124-minute caryn. Once the cement was mixed, I placed on the implants into the tibia and the femur and then impacted into place. Excess cement was removed on the tibia first and then the femur was impacted into place and excess cement was removed on that. The 14 poly was put in between them and the knee was brought into extension. The knee was then thoroughly irrigated. Any coagulation was done at that time. Once the cement had dried, the 14 seemed to fit okay, was a little loose. A 16 poly was put in with the PS stem and this fit very well. The implants that were used as a Vanguard 360/65 right femur with 5-mm distal augments and 5-mm offset, a 13 x 80 split stem. Then, a 67 tibial tray was used with a small cruciate wing and 2.5 offset and an 11 x 80 stem in the tibia. The 16 poly dished with a posterior post. Once this was implanted, she was very stable in flexion and extension and brought into extension and then knee was irrigated. Surgicel beads were placed on the gutters as well as tobramycin and vancomycin powder. The capsule was then closed with #2 Ethibond in [id number] fashion and then the capsule was irrigated. More antibiotic powder was placed on it and 2-0 Vicryl was used in interrupted fashion on the skin. Then, ZipLine was placed on the skin. The patient was dressed with Adaptic, 4 x 4, ABD, Webril, Eric wrap, and TRIP hose stocking up to the knee. She was awakened and taken to recovery in stable condition. BLOOD LOSS: Approximately 150 mL. COMPLICATIONS: None. TRANSINT:[id number] Voice Confirmation ID: [id number] DOCUMENT ID: [id number] LANE PHILLIPS DO at 1558 CC: [id number] DICTATION DATE: 06/06/18 1131 CIGARETTE MAKER: 06/06/18 1316 ADM IN [place] [address] [place] [address]
--- NOTE | 2018-06-06 16:44 | MORECARE ---
CASE MANAGEMENT DISCHARGE SUMMARY PATIENT: TOMEKA VALLE UNIT: [id number] ADM DATE: 06/06/18 AGE: 73 : 43 SEX: F ROOM/BED: D.2208 AUTHOR: LEONEL NOWAK PHYSICIAN: REFERRING PHYSICIAN: CARSON PHILLIPS DO DATE OF SERVICE: 06/06/18 Discharge Plan Patient Name: TOMEKA VALLE Facility: [facility]:[place] : 1945 Planned Disposition: Home Anticipated Discharge Date: Discharge Date: Expected LOS: Initial Reviewer: [email or web address] Initial Review Date: 06/06/2018 Generated: 06/06/18 5:43 pm DCPIA - Discharge Planning Initial Assessment Updated by [email or web address]: Jessica Hayes on 06/06/18 4:43 pm * Is the patient Alert and Oriented? Yes * How many steps to enter\exit or inside your home? * PCP none * Pharm[facility] * Preadmission Environment Home Alone * ADLs Independent * Equipment None * List name and contact numbers for known caregivers / representatives who currently or will assist patient after discharge: none * Verbal permission to speak to the caregivers and representatives has been obtained from the patient. N/A * Community resources currently utilized None * Additional services required to return to the preadmission environment? No * Can the patient safely return to the preadmission environment? Yes * Has this patient been hospitalized within the prior 30 days at any hospital? No Patient Name: TOMEKA VALLE Page 82091 at 1644 All edits/amendments must be made on the electronic document DICTATION DATE: 06/06/181642 HAT BAND ATTACHER: MARICRUZ 06/06/181642 RPT#: [id number] DC DATE: STATUS: ADM IN [facility] [address] [place] [address] END OF REPORT
--- NOTE | 2018-06-06 16:53 | MORECARE ---
CASE MANAGEMENT DISCHARGE SUMMARY PATIENT: TOMEKA VALLE UNIT: [id number] ADM DATE: 06/06/18 AGE: 73 : 43 SEX: F ROOM/BED: D.2208 AUTHOR: LEONEL NOWAK PHYSICIAN: REFERRING PHYSICIAN: CARSON PHILLIPS DO DATE OF SERVICE: 06/06/18 Discharge Plan Patient Name: TOMEKA VALLE Facility: [facility]:[place] : 1945 Planned Disposition: Anticipated Discharge Date: Discharge Date: Expected LOS: 0 Initial Reviewer: [email or web address] Initial Review Date: 06/06/2018 Generated: 06/06/18 5:52 pm Patient Name: TOMEKA VALLE Page 54538 at 1653 All edits/amendments must be made on the electronic document DICTATION DATE: 06/06/181651 METAL [employer]ODUCTS FABRICATOR ASSEMBLER: MARICRUZ 06/06/181651 RPT#: [id number] DC DATE: STATUS: ADM IN [facility] [address] [place] [address] END OF REPORT
[2018-06-06 22:46] LABS: APPEARANCE CLEAR (CLEAR); BILIRUBIN NEGATIVE (NEGATIVE); COLOR YELLOW (YELLOW); GLUCOSE NEGATIVE (NEGATIVE); KETONE NEGATIVE (NEGATIVE); NITRITE NEGATIVE (NEGATIVE); PROTEIN NEGATIVE (NEGATIVE); UROBILINOGEN NORMAL (NORMAL); WHITE CELLS - URINE OCC /hpf (0-5)
[2018-06-06 22:47] LABS: BACTERIA MODERATE /hpf (NONE SEEN); RED CELLS - URINE OCC /hpf (0-5)
[2018-06-07 01:46] VITALS: BP 142/49
[2018-06-07 06:16] VITALS: BP 131/50
[2018-06-07 06:48] LABS: BASOPHILS 0.2 % (0-2); EOSINOPHILS 0.4 % (0-7); HEMATOCRIT 30.3 % (36.0-48.0); HEMOGLOBIN 9.6 g/dL (12-16); IMMATURE GRANULOCYTES 0.1 % (0-5); LYMPHOCYTES 15.1 % (15-50); MCHC 31.7 g/dL (31.0-37.0); MCV 91.5 fL (80.0-100.0); MEAN PLATELET VOLUME 10.2 fL (7.4-10.4); MONOCYTES 10.6 % (2-11); NEUTROPHILS 73.6 % (40-80); PLATELET COUNT 237 10x3/uL (130-400); RBC 3.31 10x6/uL (4.00-5.40); RDW 13.6 % (11.5-14.5); WBC 8.3 10x3/uL (4.8-10.8)
[2018-06-07 06:52] LABS: ALBUMIN 3.1 g/dL (3.4-5.0); ANION GAP 14.5 mmol/L (8-16); BILIRUBIN - TOTAL 0.22 mg/dL (0.2-1.3); CALCIUM 7.9 mg/dL (8.5-10.1); CARBON DIOXIDE 25.4 mmol/L (21.0-32.0); CREATININE - SERUM 0.8 mg/dL (0.6-1.3); POTASSIUM - SERUM 3.9 mmol/L (3.5-5.1); PROTEIN - SERUM 5.7 g/dL (6.4-8.2)
--- NOTE | 2018-06-07 08:28 | NUR ---
PT RESTING IN BED. CO OF PAIN TO L ANKLE. NO S/S OF ACUTE DISTRESS. CL IN PLACE.
[2018-06-07 09:13] VITALS: BP 97/47
[2018-06-07 15:16] VITALS: BP 133/112
--- NOTE | 2018-06-07 19:45 | NUR ---
PT CONTINUES TO KEEP PAIN OF "8" THIS SHIFT. ICE TO R KNEE ROTATED ON AND OFF. NO S/S OF ACUTE DISTRESS. CL IN PLACE.
--- NOTE | 2018-06-07 20:00 | NUR ---
IN BED CPM IN USE TO RIGHT KNEE, C/O PAIN WILL MEDICATE ORDERED DAUGHTER AT BEDSIDE, CALL LIGHT IN REACH
[2018-06-07 22:23] VITALS: BP 149/55
[2018-06-08] VITALS (7 sets, daily range): BP systolic 101–172; BP diastolic 40–76
[2018-06-08 05:02] LABS: BASOPHILS 0.4 % (0-2); EOSINOPHILS 2.3 % (0-7); HEMATOCRIT 29.5 % (36.0-48.0); HEMOGLOBIN 9.4 g/dL (12-16); IMMATURE GRANULOCYTES 0.3 % (0-5); LYMPHOCYTES 21.7 % (15-50); MCH 29.4 pg (26.0-34.0); MCHC 31.9 g/dL (31.0-37.0); MCV 92.2 fL (80.0-100.0); MEAN PLATELET VOLUME 10.5 fL (7.4-10.4); MONOCYTES 9.4 % (2-11); NEUTROPHILS 65.9 % (40-80); PLATELET COUNT 218 10x3/uL (130-400); RDW 13.5 % (11.5-14.5); WBC 7.2 10x3/uL (4.8-10.8)
[2018-06-08 05:35] LABS: ALBUMIN 2.9 g/dL (3.4-5.0); ALKALINE PHOSPHATASE 129 U/L (46-116); BILIRUBIN - TOTAL 0.31 mg/dL (0.2-1.3); CALC OSMOLALITY 278 mosm/kg (275-300); CARBON DIOXIDE 24.6 mmol/L (21.0-32.0); CHLORIDE - SERUM 103 mmol/L (98-107); CREATININE - SERUM 0.7 mg/dL (0.6-1.3); GLUCOSE 111 mg/dL (74-106); POTASSIUM - SERUM 3.9 mmol/L (3.5-5.1); PROTEIN - SERUM 5.4 g/dL (6.4-8.2); SODIUM 139 mmol/L (136-145); UREA NITROGEN 13 mg/dL (7-18); eGFR NON AFRICAN AMERICAN 86 mL/min (90-120)
[2018-06-08 05:43] LABS: ALT (SGPT) 57 U/L (10-68)
--- NOTE | 2018-06-08 08:40 | NUR ---
PT RESTING QUIETLY IN BED. RESP EVEN AND UNLABORED. SALINE LOC TO RIGHT HAND, SITE WITHOUT REDNESS OR EDEMA. REPORTS PAIN 8/10, PAIN MEDICATION TO BE ADMINISTERED PER MD ORDERS. DRESSING C/D/I TO RIGHT KNEE, CPM IN PLACE. DENIES FURTHER NEEDS AT THIS TIME. CL WITHIN REACH. ENCOURAGED TO CALL WITH NEEDS.
--- NOTE | 2018-06-08 10:30 | NUR ---
ASSISTED PT UP TO BSC AND BACK TO BED. PT ELIE WELL. NO ACUTE DISTRESS NOTED AT THIS TIME. ENCOURAGED TO CALL WITH NEEDS.
--- NOTE | 2018-06-08 12:48 | NUR ---
PT RESTING IN BED WITH FAMILY AT BEDSIDE. REPORTS DECREASED PAIN TO 4/10. NO ACUTE DISTRESS NOTED. ICE PACK PLACED TO KNEE. DENIES FURTHER NEEDS. ENCOURAGED TO CALL WITH NEEDS.
--- NOTE | 2018-06-08 14:07 | MORECARE ---
CASE MANAGEMENT DISCHARGE SUMMARY PATIENT: TOMEKA VALLE UNIT: [id number] ADM DATE: 06/06/18 AGE: 73 : 41 SEX: F ROOM/BED: D.2207 AUTHOR: ELIU,DOC PHYSICIAN: REFERRING PHYSICIAN: CARSON PHILLIPS DO DATE OF SERVICE: 06/08/18 Discharge Plan Patient Name: TOMEKA VALLE Facility: [facility]:[place] : 1945 Planned Disposition: Inpatient Rehab Anticipated Discharge Date: Discharge Date: Expected LOS: 0 Initial Reviewer: [email or web address] Initial Review Date: 06/06/2018 Generated: 06/08/18 3:07 pm Comments DCP- Discharge Planning Updated by [id number]: Jessica Hayes on 06/08/18 1:[address] Patient Name: TOMEKA VALLE Admission Status: Urgent Accout number: [id number] Admission Date: 06-06-2018 : 1945 Admission Diagnosis: Attending: CARSON PHILLIPS Current LOS: 2 Anticipated DC Date: Planned Disposition: Inpatient Rehab Primary Insurance: MEDICARE A & B Discharge Planning Comments: CM MET WITH PATIENT TO ASSESS DISCHARGE PLANNING NEEDS. PATIENT LIVES HOME ALONE INDEPENDENTLY, BUT HER SON WILL STAY WITH HER FOR A LITTLE BIT. SHE WOULD LIKE TO GO TO INPATIENT REHAB AT [facility] ([facility]) I SENT REFERRAL. SHE STATED THAT SHE DOES NOT FEEL SAFE AT THIS TIME TO GO HOME BY HERSELF RIGHT NOW. IMM SERVED AND EXPLAINED. PATIENT HAS A WALKER AT HOME. CM WILL CONTINUE TO FOLLOW AND ASSIST WITH DC PLANNING Waste Oil Pumper: Jessica Hayes DCPIA - Discharge Planning Initial Assessment Updated by [email or web address]: Jessica Hayes on 06/08/18 2:05 pm * Is the patient Alert and Oriented? Yes * How many steps to enter\exit or inside your home? * PCP DAYRON RAHMAN * Pharmacy [facility] [address] * Preadmission Environment Home Alone * ADLs Independent * Equipment Walker * List name and contact numbers for known caregivers / representatives who currently or will assist patient after discharge: ANDREA FRANCISCO [phone] * Verbal permission to speak to the caregivers and representatives has been obtained from the patient. N/A * Community resources currently utilized None * Additional services required to return to the preadmission environment? Yes * Can the patient safely return to the preadmission environment? No * Has this patient been hospitalized within the prior 30 days at any hospital? No External Providers External Provider: 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
--- NOTE | 2018-06-08 16:43 | NUR ---
Rehab Note- Acute Inpatient Rehab Prescreen order received. The patient has some post op complications noted and has a UTI. Will follow at this time. Thank you for this referral! Luciana Saab RN Clinical Liaison, [facility] Rehab
--- NOTE | 2018-06-08 18:00 | NUR ---
CPM PLACED TO RIGHT LOWER EXTREMITY. PT ELIE WELL
--- NOTE | 2018-06-08 19:35 | NUR ---
PT SITTING UP IN BED, NO SIGNS OF DISTRESS. ALERT AND ORIENTED. DAUGHTER AT BEDSIDE. PT STATES PAIN 5/10 IN R KNEE, DENIES NEED FOR PAIN MED AT THIS TIME. RIGHT KNEE IN CPM. SCD TO LEFT LEG. ASSISTED PT ON AND OFF BEDPAN. IV RIGHT HAND SL. ICE PACK APPLED TO RIGHT KNEE. NO COMPLAINTS OR NEEDS AT THIS TIME. BED LOWEST POSITION, SRX2, CL IN REACH. WILL CONTINUE TO MONITOR
--- NOTE | 2018-06-08 21:00 | NUR ---
PT TAKEN OFF CPM. PLEXI BOOT PLACED ON RIGHT FOOT. PT STATES PAIN 5/10. DENIES NEED FOR PAIN MED AT THIS TIME. BP 101/50, HELD [facility]. NO NEEDS OR COMPLAINTS. WILL CONTINUE TO MONITOR
--- NOTE | 2018-06-08 22:45 | NUR ---
PT STATES PAIN 11/08. GAVE NORCO ORDERED. WILL CONTINUE TO MONITOR. SCD TO LEFT LEG, PLEXI TO RIGHT FOOT. IN PLACE AND ON. WILL CONTINUE TO MONITOR
[2018-06-09 03:38] VITALS: BP 132/45
--- NOTE | 2018-06-09 05:30 | NUR ---
PLACED ON CPM
[2018-06-09 06:18] LABS: BASOPHILS 0.6 % (0-2); EOSINOPHILS 3.6 % (0-7); HEMATOCRIT 29.3 % (36.0-48.0); HEMOGLOBIN 9.3 g/dL (12-16); IMMATURE GRANULOCYTES 0.2 % (0-5); LYMPHOCYTES 27.4 % (15-50); MCH 29.5 pg (26.0-34.0); MCHC 31.7 g/dL (31.0-37.0); MONOCYTES 9.8 % (2-11); NEUTROPHILS 58.4 % (40-80); PLATELET COUNT 240 10x3/uL (130-400); RBC 3.15 10x6/uL (4.00-5.40); RDW 13.8 % (11.5-14.5)
[2018-06-09 06:21] LABS: WBC 5.3 10x3/uL (4.8-10.8)
[2018-06-09 06:47] LABS: ALBUMIN 2.9 g/dL (3.4-5.0); ANION GAP 11.9 mmol/L (8-16); BILIRUBIN - TOTAL 0.45 mg/dL (0.2-1.3); CALCIUM 8.6 mg/dL (8.5-10.1); CARBON DIOXIDE 29.1 mmol/L (21.0-32.0); CREATININE - SERUM 0.8 mg/dL (0.6-1.3); PROTEIN - SERUM 5.7 g/dL (6.4-8.2)
--- NOTE | 2018-06-09 07:20 | NUR ---
PT SITTING UP IN BED, CPM IN PLACE TO RIGHT LOWER EXTREMITY, ELIE WELL. REPORTS PAIN 5/10 AT THIS TIME AND REPORTS PAIN BEING MANAGED AT THIS TIME. SALINE LOC TO RIGHT HAND, SITE WITHOUT REDNESS OR EDEMA. FAMILY AT BEDSIDE. DENIES FURTHER NEEDS AT THIS TIME. CL WITHIN REACH. ENCOURAGED TO CALL WITH NEEDS. CONTINUE POC
[2018-06-09 08:34] VITALS: BP 125/81; BP 135/74
--- NOTE | 2018-06-09 09:18 | NUR ---
PT RESTING IN BED WATCHING TV. NO ACUTE DISTRESS NOTED. DENIES FURTHER NEEDS AT THIS TIME. CL WITHIN REACH. WILL CONTINUE TO MONITOR.
[2018-06-09 11:40] VITALS: BP 146/43
[2018-06-09] MEDS ORDERED: ELIQUIS2.5 MG PO (11:55)
[2018-06-09] MEDS ORDERED: NORCO-10 PO (11:55)
[2018-06-09] MEDS ORDERED: VIBRAMYCIN 100100 MG PO (11:57)
--- NOTE | 2018-06-09 12:37 | NUR ---
Rehab Note- Visited with the patient. States that she plans to go to [facility] due to her past stay in our inpatient acute rehab she had her there with her everyday and he recently and she just doesn't feel like she can come back to our acute rehab unit at this time d/t the memories of hime. Provided our contact information if needed in the future. Thank you for this referral! Luciana Saab RN CLinical Liaison, [facility] Rehab
--- NOTE | 2018-06-09 15:45 | NUR ---
PT DISCHARGE INFORMATION GIVEN. SALINE LOCK D/C'D FROM RIGHT FOREARM. DRESSING CHANGE TO RIGHT KNEE MEPILEX AG PLACED. ZIP CLOSURE DRESSING INTACT. DIME SIZED AMOUNT OF BLOODY DRAINAGE NOTED. PT ELIE WELL. ASSISTED WITH DRESSING AND TRANSFER TO / WITH TRANSPORTATION FROM [facility]. REPORT CALLED TO EMLIEE TIPTON INFORMATION PROVIDED. DISCHARGE PAPERWORK SENT WITH HAIR SPINNING MACHINE OPERATOR TO REHAB.
--- NOTE | 2018-06-09 16:56 | MORECARE ---
CASE MANAGEMENT DISCHARGE SUMMARY PATIENT: TOMEKA VALLE UNIT: [id number] ADM DATE: 06/06/18 AGE: 73 : 43 SEX: F ROOM/BED: D.2201 AUTHOR: ELIUDOC PHYSICIAN: REFERRING PHYSICIAN: CARSON PHILLIPS DO DATE OF SERVICE: 06/09/18 Discharge Plan Patient Name: TOMEKA VALLE Facility: [facility]:[place] : 1945 Planned Disposition: Inpatient Rehab Anticipated Discharge Date: Discharge Date: 06/09/2018 Expected LOS: 0 Initial Reviewer: [id number] Initial Review Date: 06/06/2018 Generated: 06/09/18 5:56 pm Comments DCP- Discharge Planning Updated by [email or web address]: Jessica Hayes on 06/09/18 3:[address] PATIENT WAS DISCHARGED TO INPATIENT REHAB AT [facility] BY THEIR VAN DCP- Discharge Planning Updated by [email or web address]: Jessica Hayes on 06/08/18 1:[address] Patient Name: TOMEKA VALLE Admission Status: Urgent Accout number: [id number] Admission Date: 06-06-2018 : 1945 Admission Diagnosis: Attending: CARSON PHILLIPS Current LOS: 2 Anticipated DC Date: Planned Disposition: Inpatient Rehab Primary Insurance: MEDICARE A & B Discharge Planning Comments: CM MET WITH PATIENT TO ASSESS DISCHARGE PLANNING NEEDS. PATIENT LIVES HOME ALONE INDEPENDENTLY, BUT HER SON WILL STAY WITH HER FOR A LITTLE BIT. SHE WOULD LIKE TO GO TO INPATIENT REHAB AT [facility] ([facility]) I SENT REFERRAL. SHE STATED THAT SHE DOES NOT FEEL SAFE AT THIS TIME TO GO HOME BY HERSELF RIGHT NOW. IMM SERVED AND EXPLAINED. PATIENT HAS A WALKER AT HOME. CM WILL CONTINUE TO FOLLOW AND ASSIST WITH DC PLANNING Outside Sales Consultant: Jessica Hayes DCPIA - Discharge Planning Initial Assessment Updated by [email or web address]: Jessica Hayes on 06/08/18 2:05 pm * Is the patient Alert and Oriented? Yes * How many steps to enter\exit or inside your home? * PCP DAYRON RAHMAN * Pharmacy [facility] [address] * Preadmission Environment Home Alone * ADLs Independent * Equipment Walker * List name and contact numbers for known caregivers / representatives who currently or will assist patient after discharge: ANDREA FRANCISCO [phone] * Verbal permission to speak to the caregivers and representatives has been obtained from the patient. N/A * Community resources currently utilized None * Additional services required to return to the preadmission environment? Yes * Can the patient safely return to the preadmission environment? No * Has this patient been hospitalized within the prior 30 days at any hospital? 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
== END 2018-06-09 15:50 | DRG 468 ==
LOC: D.SDCHOLD 06-06 05:00 → D.MS 06-06 05:00 → D.SDCHOLD 06-06 07:30 → D.MS 06-06 12:11
PROVIDERS: Family Medicine; ADMIT Orthopaedic Surgery
PROC: 0SRC0J9 Replacement of Right Knee Joint with Synthetic Substitute, Cemented, Open Approach (ICD-10-PCS; 2018-06-06)
PROC: 0SPC0JZ Removal of Synthetic Substitute from Right Knee Joint, Open Approach (ICD-10-PCS; principal; 2018-06-06 07:30)
DX: T84.032A Mechanical loosening of internal right knee prosthetic joint, initial encounter (principal); Y83.9 Surgical procedure, unspecified as the cause of abnormal reaction of the patient, or of later complication, without mention of misadventure at the time of the procedure; E03.9 Hypothyroidism, unspecified; I10 Essential (primary) hypertension; I25.10 Atherosclerotic heart disease of native coronary artery without angina pectoris; Z87.891 Personal history of nicotine dependence

== ENCOUNTER → 2018-08-23 16:11 | Outpatient (CLI) | payer MEDICARE, BC ==
[2018-06-06 17:27] VITALS: BMI 33.0
[~2018-08-23 16:11] MED LIST changes: +ACETAMINOPHEN500 M1 PO; +NORCO-10 PO; +ULTRAM50 MG PO; +VIBRAMYCIN 100100 MG PO
[2018-08-23 17:51] LABS: APPEARANCE CLEAR (CLEAR); COLOR YELLOW (YELLOW)
[2018-08-23 17:52] LABS: BILIRUBIN NEGATIVE (NEGATIVE); GLUCOSE NEGATIVE (NEGATIVE); KETONE NEGATIVE (NEGATIVE); NITRITE NEGATIVE (NEGATIVE); PROTEIN NEGATIVE (NEGATIVE); SPECIFIC GRAVITY 1.015 (1.005-1.020); UROBILINOGEN NORMAL (NORMAL)
== END | disposition home or self-care (01) ==
LOC: D.LABREF 16:11
PROVIDERS: ATTEND Emergency Medicine
DX: R30.9 Painful micturition, unspecified (principal); R39.198 Other difficulties with micturition; R35.0 Frequency of micturition

== ENCOUNTER → 2019-02-28 12:31 | Outpatient (CLI) | payer MEDICARE, BC ==
[2018-06-06 17:27] VITALS: BMI 33.0
[2019-02-28 16:13] LABS: BASOPHILS 0.5 % (0-2); EOSINOPHILS 1.8 % (0-7); HEMATOCRIT 34.5 % (36.0-48.0); IMMATURE GRANULOCYTES 0.5 % (0-5); LYMPHOCYTES 29.9 % (15-50); MCH 29.6 pg (26.0-34.0); MCHC 31.9 g/dL (31.0-37.0); MONOCYTES 5.8 % (2-11); NEUTROPHILS 61.5 % (40-80); RBC 3.71 10x6/uL (4.00-5.40); RDW 13.5 % (11.5-14.5); WBC 8.7 10x3/uL (4.8-10.8)
[2019-02-28 16:21] LABS: PLATELET COUNT 350 10x3/uL (130-400)
[2019-02-28 17:24] LABS: ERYTHROCYTE SEDIMENTATION RATE 35 mm/hr (0-30)
== END | disposition home or self-care (01) ==
LOC: D.LABREF 12:31
PROVIDERS: ATTEND Orthopaedic Surgery
DX: M25.561 Pain in right knee (principal)

== ENCOUNTER → 2019-05-23 10:33 | Outpatient (CLI) | payer MEDICARE, BC ==
[2018-06-06 17:27] VITALS: BMI 33.0
== END | disposition home or self-care (01) ==
LOC: D.HCCECHO 10:33
PROVIDERS: ATTEND Internal Medicine Cardiovascular Disease
DX: I25.10 Atherosclerotic heart disease of native coronary artery without angina pectoris (principal)

== ENCOUNTER 2019-07-10 08:00 | Outpatient (CLI) | payer MEDICARE, BC ==
[2018-06-06 17:27] VITALS: BMI 33.0
== END 2019-07-10 23:59 | disposition home or self-care (01) ==
LOC: D.MAMMO 08:00
PROVIDERS: ATTEND Emergency Medicine
DX: Z12.31 Encounter for screening mammogram for malignant neoplasm of breast (principal)

== ENCOUNTER → 2019-09-04 07:57 | Outpatient (CLI) | payer MEDICARE, BC ==
[2018-06-06 17:27] VITALS: BMI 33.0
== END | disposition home or self-care (01) ==
LOC: D.HCCARDIO 07:57
PROVIDERS: ATTEND Internal Medicine Cardiovascular Disease
DX: I25.10 Atherosclerotic heart disease of native coronary artery without angina pectoris (principal); R07.9 Chest pain, unspecified; I10 Essential (primary) hypertension

== ENCOUNTER 2019-09-18 06:33 | Outpatient (CLI) | payer MEDICARE, BC ==
[~2019-09-18] VITALS: Ht 157.5 cm; Wt 80.1 kg
--- NOTE | ~2019-09-18 | HEMODYNAMI ---
PATIENT:TOMEKA VALLE MEDICAL RECORD: [id number] : 41 LOCATION:[facility] ADMISSION DATE: 09/18/19 Generatedon:09/18/20199:49 Patient name: TOMEKA VALLE Patient #: [id number] SSN: [id number] : 1945 Date of study: 09/18/2019 Page: Of Hemodynamic Procedure Report Patient Data Patient Demographics Procedure consent was obtained First Name: TOMEKA Gender: Female Last Name: LEONARD : 1945 [facility] Initial: ALLAN Age: 74 year(s) Patient #: [id number] Race: SSN: [id number] Additional ID: [id number] Contact details [address]: [address] [place] [address] State: [place] City: [place] Zip code: [address] Past Medical History History of disease Date Diagnosis Comments CAD Allergies Allergen Reaction Date Comments Reported Penicillins 08/20/2015 Other allergy 08/20/2015 PRENISONE Other allergy 09/14/2017 wasp/bee stings, prednisone Penicillins 09/14/2017 Penicillins 05/03/2018 Other allergy 05/03/2018 prednisone Other allergy 09/18/2019 PCN Admission Admission Data Admission Date: 09/18/2019 Admission Time: 6:33 Insurance Payor: Medicaid [facility] #: [id number] Height (in.): 63 BSA: 1.83 (m2) Height (cm.): 160.02 BMI: 31.18 (kg/m2) Weight (lbs.): 176 Weight (kg.): 79.83 Lab Results Lab Result Date: 09/18/2019 Lab Result Time: 0:00 Biochemistry Name Units Result Min Max BUN mg/dl 31 --(----)-* 7 18 Creatinine mg/dl 1.2 --(---*)-- 0.6 1.3 eGFR ml/min 46 *-(----)-- 90 120 NONAFRICAN CBC Name Units Result Min Max Hemoglobin g/dl 10.8 *-(----)-- 13.5 17.5 Procedure Procedure Types Cath Procedure Diagnostic Procedure [facility] w/Coronaries FFR/IVUS FFR Initial Sedation Charges Moderate Sedation up to 15 minutes Procedure Description Procedure Date Procedure Date: 09/18/2019 Procedure Start Time: 9:17 Procedure End Time: 9:45 Procedure Staff Name Function Rosas Solis MD Performing Physician Norah Fox RT Monitor Kavya Salinas RN Nurse Johana Pendleton RT Scrub Indication Coronary risk factors Procedure Data Cath Procedure Fluoroscopy Diagnostic fluoroscopy Total fluoroscopy Time: 4 time: 4 min min Diagnostic fluoroscopy Total fluoroscopy dose: 457 dose: 457 mGy mGy Contrast Material Contrast Material Type Amount (ml) Isovue 300 71 Entry Location Entry Primary Successful Side Size Upsize Upsize Entry Closure Succes sful Closure Location (Fr) 1 (Fr) 2 (Fr) Remarks Device Remarks Femoral Right 5 Fr 6 Fr artery Short Estimated blood loss: 10 ml Diagnostic catheters Device Type Used For End Catheter Placement MULTIPACK JL 4.0 5Fr Procedure catheter MULTIPACK 3DRC 5Fr Procedure catheter MULTIPACK Pigtail 5 Fr Ventriculography catheter Procedure Complications No complications Procedure Medications Medication Administration Route Dosage 0.9% NaCl I.V. 100 ml/hr Oxygen etCO2 Nasal cannula 2 l/min Lidocaine 2% added to field 20 Heparin Flush Bag added to field 2 bags (1000units/500ml NS) Versed I.V. 2 mg Fentanyl I.V. 50 mcg Fentanyl I.V. 50 mcg Heparin Bolus I.V. 2000 units Hemodynamics Rest BSA: 1.83 (m2) O2 Consumption: Estimated: 164.63 (ml/min) O2 Consumption indexed : Estimated:89.96 (ml/min/m) Heart Rate: 68 (bpm) Pressure Samples Time Site Value (mmHg) Purpose Heart Use Rate(bpm) 9:28 LV 140/5,21 Snapshot 68 Gradients Valve Time Site Site Mean SEP/DFP Peak To Heart Use 1 2 (mmHg) (sec/min) Peak Rate (mmHg) (bpm) Aortic 9:29 LV AO 69 Snapshots Pre Cath Intra NCS Post Cath Vital Signs Time Heart Resp SPO2 etCO2 NIBP Rhythm Pain Sedation Rate (ipm) (%) (mmHg) (mmHg) Status Level (bpm) 9:18:57 57 11 97 33.6 122/54(95) SB 0 (11) 10(A) , No pain 9:23:13 60 10 100 29.1 118/60(96) NSR 0 (11) 10(A) , No pain 9:27:28 69 11 100 35.8 121/59(91) NSR 0 (11) 10(A) , No pain 9:31:43 66 11 100 26.8 134/56(98) NSR 0 (11) 9(A) , No pain 9:35:57 69 12 100 34.3 125/65(92) NSR 0 (11) 9(A) , No pain 9:40:13 65 12 100 35.1 131/67(86) NSR 0 (11) 9(A) , No pain 9:44:33 63 12 100 36.6 135/62(90) NSR 0 (11) 10(A) , No pain Medications Time Medication Route Dose Verified Delivered Reason Notes Effectiveness by by 9:12:47 0.9% NaCl I.V. 100 Rosas Kavya used for ml/hr Will Salinas jaw skinner 9:12:53 Oxygen etCO2 2 Rosas Kavya used for Nasal l/min Will Salinas procedure cannula RN 9:12:58 Lidocaine 2% added 20ml Rosas Rosas for local to vial Will Solis MD anesthetic field 9:13:04 Heparin Flush added 2 Rosas Rosas used for Bag to bags Will Solis MD procedure (1000units/500ml field NS) 9:20:23 Versed I.V. 2 mg Rosas Kavya for sedation Fully awake @ Will Salinas 9:24:32 RN 9:20:28 Fentanyl I.V. 50 Rosas Kavya for sedation Fully awake @ mcg Will Salinas 9:24:34 RN 9:24:21 Fentanyl I.V. 50 Rosas Kavya for sedation Mostly mcg Will Salinas sleeping @ RN 9:30:30 9:35:35 Heparin Bolus I.V. 2000 Rosas Kavya for verifi ed units Will Salinas anticoagulation with Dr. KAMLA Solis Procedure Log Time Note 8:46:38 Patient Height : 63 inches 8:46:46 Patient Weight : 176 lbs 8:47:56 Insurance Payor : Medicaid 8:50:35 Lab Result : Hemoglobin 10.8 g/dl 8:50:35 Lab Result : eGFR NONAFRICAN 46 ml/min 8:50:35 Lab Result : BUN 31 mg/dl 8:50:35 Lab Result : Creatinine 1.2 mg/dl 8:51:17 Indication : Coronary risk factors 8:51:32 Procedure Status Elective Heart Cath (OP). 8:51:35 Kavya Salinas RN sent for patient. Start room use. 8:51:37 Time tracking: Regular hours (M-F 7:00 - 5:00) 8:51:43 Plan of Care:Hemodynamics will remain stable., Cardiac rhythm will remain stable., Comfort level will be maintained., Respiratory function will remain adequate., Patient/ family verbilizes understanding of procedure., Procedure tolerated without complication., Recovers from procedure without complications.. 8:52:00 Patient received from Pre/Post Procedure Room to CCL 1 Alert and oriented. Tansferred to table in Supine position. 8:52:02 Signed procedure consent form obtained from patient. 8:52:03 Warm blankets applied, and nicole hugger turned on for patient comfort. 8:52:04 Correct patient and procedure confirmed by team. 8:52:22 H&P Date Dictated: 08/29/2019 Within 30 days and on chart., H&P Addendum completed by physician on day of procedure. (MUST COMPLETE FOR ALL OUTPATIENTS). 8:52:25 Pre-procedure instructions explained to patient. 9:08:52 Family unavailable. 9:08:54 Patient NPO since Midnight. 9:09:04 Patient allergic to Other allergyPCN 9:09:07 Is the patient allergic to Iodine/contrast media? No. 9:09:09 Was the patient premedicated? Yes 9:09:10 Is patient on blood thinner?No 9:09:12 Patient diabetic? Yes. 9:09:15 If diabetic: On Metformin? No 9:09:19 Snore? Yes 9:09:21 Sleep apnea? No 9:09:28 Dentures? Yes ? 9:09:33 Patient pain scale 0/10 ?. 9:09:40 IV patent on arrival in right antecubital with 0.9% NaCl at KVO. 9:09:43 Lab results completed and on chart. 9:09:48 Stress Test: yes; abnormal ? 9:09:53 Right groin area was prepped with chlora-prep and draped in sterile fashion 9:09:55 Alarms reviewed by Sudeep Harris 9:09:55 Alarms reviewed by Sudeep Haque. 9:09:58 Physician arrived 9:09:59 --------ALL STOP TIME OUT------ 9:11:12 Final Timeout: patient, procedure, and site verified with staff and physician. All members of the team are in agreement. 9:11:23 Right groin site verified by team. 9:11:29 Fire Safety Assessment: A--An alcohol-based skin anteseptic being used preoperatively., C--Open oxygen or nitrous oxide is being used., D--An ESU, laser, or fiber-optic light is being used. 9:11:32 Physical assessment completed. ASA score P 2 - A patient with mild systemic disease as per Rosas Solis MD. 9:11:37 2) 60-89 Mildly reduced kidney function, and other findings (as for stage 1) point to kidney disease. 9:11:42 Maximum allowable contrast dose (3.7 X eGFR X 0.75)127 ml. 9:11:46 Sedation plan: IV Moderate Sedation Medication:Versed, Fentanyl 9:11:54 Use device set Femoral Dx 9:11:55 ACIST Syringe (67203) opened to sterile field. 9:11:56 Bag Decanter (2001S) opened to sterile field. 9:11:56 Medline Cath Pack ([id number]) opened to sterile field. 9:11:58 ACIST Hand Control (94183) opened to sterile field. 9:11:58 ACIST Manifold (95740) opened to sterile field. 9:11:59 DIAGNOSTIC Multipack 5Fr catheter set ([id number]) opened to sterile field. 9:12:00 Tegaderm 4 x 4 (1626W) opened to sterile field. 9:12:01 SHEATH 5FR Cavalier (WQP078) opened to sterile field. 9:12:02 EMERALD Guide Wire (503-300) opened to sterile field. 9:12:47 0.9% NaCl 100 ml/hr I.V. was administered by Kavya Salinas RN; used for procedure; Verbal order read back and verified. 9:12:53 Oxygen 2 l/min etCO2 Nasal cannula was administered by Kavya Salinas RN; used for procedure; Verbal order read back and verified. 9:12:58 Lidocaine 2% 20ml vial added to field was administered by Rosas Slois MD; for local anesthetic; Verbal order read back and verified. 9:13:04 Heparin Flush Bag (1000units/500ml NS) 2 bags added to field was administered by Rosas Solis MD; used for procedure; Verbal order read back and verified. 9:17:42 Procedure started. 9:17:43 Full Disclosure recording started 9:17:51 Vital chart was started 9:17:52 Local anesthetic to right femoral artery with Lidocaine 2% by Rosas Solis MD.INITIAL ACCESS ONLY 9:18:03 A 5 Fr sheath was inserted into the Right Femoral artery 9:20:23 Versed 2 mg I.V. was administered by Kavya Salinas RN; for sedation; Verbal order read back and verified. 9:20:28 Fentanyl 50 mcg I.V. was administered by Kavya Salinas RN; for sedation; Verbal order read back and verified. 9:23:36 A MULTIPACK JL 4.0 5Fr catheter was advanced over the wire and used for Procedure. 9:23:38 LCA angiography performed. 9:24:21 Fentanyl 50 mcg I.V. was administered by Kavya Salinas RN; for sedation; Verbal order read back and verified. 9:24:29 Catheter removed. 9:24:32 Effectiveness of Versed delivered @ 9:20:23 is: Fully awake 9:24:34 Effectiveness of Fentanyl delivered @ 9:20:28 is: Fully awake 9:24:38 A MULTIPACK 3DRC 5Fr catheter was advanced over the wire and used for Procedure. 9:25:26 RCA angiography performed. 9::51 A MULTIPACK Pigtail 5 Fr catheter was advanced over the wire and used for Ventriculography. 9:28:55 LV gram done using DOMINGUEZ 9:29:08 EF : 60 % 9:30:30 Effectiveness of Fentanyl delivered @ 9:24:21 is: Mostly sleeping 9:33:31 Catheter removed. 9:34:13 GUIDE 6FR JR 4.0 catheter ([id number]) opened to sterile field. 9:34:14 [place] Verrata Plus pressure wire (49643L) opened to sterile field. 9:34:15 SHEATH 6FR Cavalier (UGO700) opened to sterile field. 9:34:15 TUBING High Pressure Extension Tubing (Will) (IU5168P) opened to sterile field. 9:34:26 Sheath upsized to a 6 Fr Short. 9:35:12 INFLATOR Merit BasixCompak (NU0089) opened to sterile field. 9:35:35 Heparin Bolus 2000 units I.V. was administered by Kavya Salinas RN; for anticoagulation; verified with Dr. Solis Verbal order read back and verified. 9:35:48 6 Fr JR4 guide catheter was inserted over the wire 9:35:53 IFR wire advanced. 9:40:47 mRCA lesion measured at .99 with IFR 9:42:14 Catheter removed. 9:42:19 Procedure ended.(Physican Out) 9:42:34 EXOSEAL 6Fr (EX600) opened to sterile field. 9:42:43 Fluoroscopy time 04.00 minutes. 9:42:51 Flurop Dose total: 457 9:42:51 Fluoroscopy dose: 457 mGy 9:43:06 Dose Area Product 47713 mGy/cm. 9:43:12 Contrast amount:Isovue 300 71ml. 9:43:18 Maximum allowable dose exceeded? No. 9:43:22 Insertion/operative site no bleeding no hematoma. 9:43:28 Post right femoral artery:stable 9:43:31 Post Procedure Pulses reassessed and unchanged 9:43:36 Post-procedure physical assessment completed. ASA score P 2 - A patient with mild systemic disease as per Rosas Solis MD. 9:43:39 Post procedure rhythm: sinus rhythm 9:43:42 Estimated blood loss: 10 ml 9:43:44 Post procedure instruction explained to patient.Patient verbalizes understanding. 9:44:20 Procedure type changed to Cath procedure, Diagnostic procedure, LHC, [facility] w/Coronaries, FFR/IVUS, FFR Initial, Sedation Charges, Moderate Sedation up to 15 minutes 9:44:22 Procedure and supply charges have been captured, reviewed, submitted and are correct. 9:44:45 Procedure Complication : No complications 9:44:49 Vital chart was stopped 9:44:51 [facility] Findings: mild to moderate CAD (<70%) 9:44:55 Operative report dictated upon procedure completion. 9:44:56 See physician's report for complete and final results. 9:44:59 Patient transfered to Pre/Post Procedure Room with Stretcher. 9:45:02 Procedure ended. 9:45:02 Full Disclosure recording stopped 9:45:05 End room use (Document Last) 9:45:57 ACT drawn and resulted at 259 seconds. (normal therapeutic range 180-240 seconds). Device Usage Item Name Manufacture Quantity Catalog Hospital Part Current Minima l Lot# / Number Charge Number Stock Stock Serial# Code ACIST Acist 1 46989 221496 302037 096919 20 Syringe Medical (49750) Systems Inc Bag Microtek 1 238710 26965 932331 5 Decanter Medical Inc. () Medline Medline 1 [id number] 289270 68254 293550 5 Cath Pack ([id number]) ACIST Hand Acist 1 87718 880686 228489 566133 5 Control Medical (52712) Systems Inc ACIST Acist 1 59218 879883 128849 691150 5 Manifold Medical (66452) Systems Inc DIAGNOSTIC Cardinal 1 [id number] 816129 84591 551275 30 Multipack Health 5Fr catheter set (TV5373) Tegaderm 4 3M 1 1626W 857187 418279 947522 5 x 4 (1626W) SHEATH 5FR Terumo 1 [id number] 446044 357908 710106 5 Cavalier (LRX761) EMERALD Cardinal 1 502-455 769772 587624 941381 5 Guide Wire Health (502-455) MULTIPACK Cardinal 1 615997 5 JL 4.0 5Fr Health catheter MULTIPACK Cardinal 1 249694 5 3DRC 5Fr Health catheter MULTIPACK Cardinal 1 498043 5 Pigtail 5 Health Fr catheter GUIDE 6FR Medtronic 1 [id number] 542261 02791 340762 1 JR 4.0 catheter (NU5KN97) [place] 1 45280U 710590 [id number] 466893 5 Verrata Plus pressure wire (34393R) SHEATH 6FR Terumo 1 ISD123 120210 382151 336952 40 Cavalier (KII605) TUBING High Merit 1 [id number] 677860 37194 827276 10 Pressure Medical Extension Tubing (Solis) ([id number]) INFLATOR Merit 1 KB8815 541541 327698 617478 15 Merit Medical BasixCompak (DO1049) EXOSEAL 6Fr Cardinal 1 EX600 240906 215491 213748 10 (EX600) Health Signature Audit [place] Stage Time Signature Unsigned Intra-Procedure 09/18/2019 Norah Fox 9:48:57 AM RT(R) [facility] [address] [place] [id number]
[2019-09-18] MEDS ORDERED: LISINOPRIL20 MG PO (06:58)
[2019-09-18] MEDS ORDERED: CLARITIN5 MG/5 ML PO (06:59)
[2019-09-18] MEDS ORDERED: BAYER CHEWABLE81 MG PO (06:59)
[2019-09-18 07:26] VITALS: BP 141/49; Ht 157.5 cm; Wt 80.1 kg
[2019-09-18 07:32] LABS: BASOPHILS 0.9 % (0-2); EOSINOPHILS 3.6 % (0-7); HEMATOCRIT 34.5 % (36.0-48.0); HEMOGLOBIN 10.8 g/dL (12-16); IMMATURE GRANULOCYTES 0.2 % (0-5); LYMPHOCYTES 44.4 % (15-50); MCH 29.3 pg (26.0-34.0); MCHC 31.3 g/dL (31.0-37.0); MCV 93.8 fL (80.0-100.0); MEAN PLATELET VOLUME 9.1 fL (7.4-10.4); MONOCYTES 7.7 % (2-11); NEUTROPHILS 43.2 % (40-80); PLATELET COUNT 299 10x3/uL (130-400); RBC 3.68 10x6/uL (4.00-5.40); RDW 13.3 % (11.5-14.5); WBC 5.8 10x3/uL (4.8-10.8)
[2019-09-18 07:46] LABS: CALCIUM 9.3 mg/dL (8.5-10.1); CARBON DIOXIDE 27.2 mmol/L (21.0-32.0); CHOL - HDL RATIO 3.4 ratio (2.3-4.1); CREATININE - SERUM 1.2 mg/dL (0.6-1.3); LDL-HDL RATIO 1.8 ratio (1.5-3.5); POTASSIUM - SERUM 4.2 mmol/L (3.5-5.1)
--- NOTE | 2019-09-18 10:05 | NUR ---
PT RECEIVED VIA STRETCHER FROM [facility] LIAISON FOR RECOVERY. DR RODRIGUEZ AT BS DISCUSSING W DAUGHTER PROCEDURE RESULTS. PT PLACED ON CARDIAC MONITORS AND O2 VIA NC AT 2L. HR NSR RATE 56, BP 119/41, RR 15, SAT 100. IV PATENT INFUSING VIA ORDERS TO R ARM. R GROIN SOFT, DRESSING CDI NO S/S HEMATOMA OR BLEEDING NOTED. EXTREMITY WARM AND PINK, PEDAL PULSES PALPABLE. PT DENIES PAIN OR DISCOMFORT. INSTRUCTED PT TO KEEP HEAD FLAT ON PILLOW AND LEG STRAIGHT, SHE VERBALIZED UNDERSTANDING. CALL LIGHT IN REACH
--- NOTE | 2019-09-18 10:30 | NUR ---
R GROIN SOFT, DRESSING CDI NO S/S HEMATOMA NOTED. LEG PINK AND WARM, PEDAL PULSES PALPABLE. VSS. PT TOLERATING PO FLUIDS. DENIES PAIN OR DISCOMFORT. CALL LIGHT IN REACH, DAUGHTER AT BS.
--- NOTE | 2019-09-18 11:15 | NUR ---
PT RESTING W/O COMPLAINTS. R GROIN SOFT, DRESSING CDI NO S/S HEMATOMA OR BLEEDING NOTED. LEG REMAINS WARM PINK, PEDAL PULSES PALPABLE. VSS. CALL LIGHT IN REACH
--- NOTE | 2019-09-18 11:36 | NUR ---
R GROIN SOFT, NO S/S HEMATOMA. HOB ELEVATED SLIGHTLY. COFFEE SERVED PER PT REQUEST. PT DENIES OTHER NEEDS AT THIS TIME. VSS.
--- NOTE | 2019-09-18 12:15 | NUR ---
R GROIN SOFT, DRESSING REMAINS CDI NO S/S HEMATOMA NOTED. PT TOLERATED LUNCH W/O DIFFICULITY. VSS, HR 58, BP 112/48, RR 16, SAT 99. CALL LIGHT IN REACH.
--- NOTE | 2019-09-18 12:50 | NUR ---
DISCHARGE INSTRUCTIONS REVIEWED W PT AND DAUGHTER, BOTH VERBALIZED UNDERSTANDING. IV REMOVED W CATH INTACT, MONITORS AND O2 REMOVED. R GROIN SOFT, REMAINS FREE OF BLEEDING OR S/S HEMATOMA. DRESSING CDI. PT UP TO DRESS FOR DISCHARGE W ASSIST FROM DAUGHTER.
--- NOTE | 2019-09-18 13:00 | NUR ---
PT AMBULATED TO BR, VOIDING W/O DIFFICULITY. 1310 PT DISCHARGED VIA WC TO DAUGHTER IN PRIVATE VEHICLE. PT HAD ALL BELONGINGS AND DISCHARGE PAPERWORK
== END 2019-09-18 13:10 | disposition home or self-care (01) ==
LOC: D.CATH 06:33
PROVIDERS: ATTEND Internal Medicine Cardiovascular Disease
DX: I25.119 Atherosclerotic heart disease of native coronary artery with unspecified angina pectoris (principal); I10 Essential (primary) hypertension; R07.9 Chest pain, unspecified; I35.1 Nonrheumatic aortic (valve) insufficiency; E03.9 Hypothyroidism, unspecified; E11.9 Type 2 diabetes mellitus without complications; Z79.84 Long term (current) use of oral hypoglycemic drugs

== ENCOUNTER → 2019-10-02 09:50 | Outpatient (CLI) | payer MEDICARE, BC ==
[2019-09-18 07:26] VITALS: BMI 32.3
[~2019-10-02 09:50] MED LIST changes: +CLARITIN5 MG/5 ML PO; +LISINOPRIL20 MG PO
== END | disposition home or self-care (01) ==
LOC: D.CT 09:50
PROVIDERS: ATTEND Emergency Medicine
DX: J32.8 Other chronic sinusitis (principal)

== ENCOUNTER → 2020-02-01 09:54 | Outpatient (CLI) | payer MEDICARE, BC ==
[2019-09-18 07:26] VITALS: BMI 32.3
== END | disposition home or self-care (01) ==
LOC: D.MRI 09:54
PROVIDERS: ATTEND Orthopaedic Surgery
DX: M54.16 Radiculopathy, lumbar region (principal)

== ENCOUNTER 2020-07-22 13:30 | Outpatient (CLI) | payer MEDICARE, BC ==
[2019-09-18 07:26] VITALS: BMI 32.3
== END 2020-07-22 23:59 | disposition home or self-care (01) ==
LOC: D.MAMMO 13:30
PROVIDERS: ATTEND Emergency Medicine
DX: Z12.31 Encounter for screening mammogram for malignant neoplasm of breast (principal)

== ENCOUNTER → 2020-10-03 11:14 | Outpatient (CLI) | payer MEDICARE, BC ==
[2019-09-18 07:26] VITALS: BMI 32.3
== END | disposition home or self-care (01) ==
LOC: D.HCCECHO 10-01 09:00
PROVIDERS: ATTEND Internal Medicine Cardiovascular Disease
DX: I25.10 Atherosclerotic heart disease of native coronary artery without angina pectoris (principal)